=== PATIENT | female | born 1980 | race Caucasian/White ===

== ENCOUNTER 2025-02-06 14:19 | Emergency (ER) | payer BC, SELFPAY ==
--- OUTSIDE RECORDS SUMMARY | 2025-02-06 14:22 | XMS_ITS | Clinical Summary ---
Author Organization [facility] Address [address] [place] [address] Care Team Providers Care Vocational Rehabilitation Administrator Name Role Phone Alfreda Monterroso MD Primary Care Provider [phone] Allergies No known active allergies Medications hyoscyamine 0.125 MG tablet TAKE 1 TABLET BY MOUTH EVERY 4 HOURS NEEDED FOR CRAMPING. 3 03/13/2017 Active buPROPion XL (WELLBUTRIN XL) 150 MG 24 hr tablet 08/20/2021 Active ubrogepant (UBRELVY) 100 MG tablet Take 1 tablet (100 mg total) by mouth. Active cetirizine (ZYRTEC) 5 MG tablet Take 1 tablet (5 mg total) by mouth daily. 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 Left foot pain 12/17/2017 Left lower quadrant pain 12/21/2016 Melena 12/21/2016 Other specified symptoms and signs involving the digestive system and abdomen 12/21/2016 Resolved Problems Problem Noted Date Diagnosed Date Resolved Date Encounter for preventive health examination 11/29/2017 11/28/2019 Encounters Date Type Department Care Team Description 12/19/2024 7:30 AM CDT - 12/19/2024 8:15 AM CDT Surgery [address] [address] Kizzy Mckinney MD HYSTEROSCOPY DILATATION AND CURETTAGE AND RESECTOSCOPE (MYOSURE) 12/19/2024 7:24 AM CD[place] [address] Suzanna Cooley CRNA Ruiz, Eloy A, MD 12/19/2024 6:31 AM CDT - 12/19/2024 11:14 AM CD[place] [address] Kizzy Mckinney MD Discharge Disposition: Home or Self Care (Routine Discharge) 12/19/2024 Travel 12/10/2024 Scan [facility] Information Services [address] [place] [address] Velia Mitchell, CC [facility] (SCAN) 12/08/2024 Travel from Last 3 Months Immunizations Immunization Administration Dates Next Due Influenza (Generic) 12/30/2018 Family History Medical History Relation Comments Hypertension Father Breast Cancer Maternal Aunt Heart Maternal Grandfather Diabetes Paternal Grandfather Heart Paternal Grandfather Relation Status Comments Father Maternal Aunt Alive Maternal Grandfather Paternal Grandfather Social History Tobacco Use Types Packs/Day Years Used Date Smoking Tobacco: Never Smokeless Tobacco: Never Tobacco Cessation:Counseling Given: No Alcohol Use Standard Drinks/Week Comments No 0 (1 standard drink = 0.6 oz pur e alcohol) AUDIT-C Answer Date Recorded Frequency of Alcohol Consumption Never 02/14/2018 Average Number of Drinks Not on file 018 Frequency of Binge Drinking Not on file 01/18 PHQ-2 Answer Date Recorded Patient Health Questionnaire-2 Score 0 03/01/2022 Comments No Sex and Gender Information Value Date Recorded Sex Assigned at Female 02/14/2018 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 Legal Sex Female 8:24 PM CDT Gender Identity Female 02/14/2018 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 Sexual Orientation Straight 02/14/2018 5: 41 PM STAFF RESEARCH SCIENTIST Last Filed Vital Signs Vital Sign Reading Time Taken Comments Blood Pressure 122/74 12/19/2024 8:47 AM CDT Pulse 75 12/19/2024 8:47 AM CDT Temperature 36.4 C (97.6 F) 12/19/2024 8:02 AM CDT Respiratory Rate 16 12/19/2024 8:02 AM CDT Oxygen Saturation 100% 12/19/2024 8:47 AM CDT Inhaled Oxygen Concentration - - Weight 66.7 kg (147 lb) 12/19/2024 6:48 AM CDT Height 160 cm (5' 3) 12/19/2024 6:48 AM CDT Body Mass Index 26.04 12/19/2024 6:48 AM CDT Plan of Treatment Health Maintenance Due Date Last Done Comments Cervical Cancer Screening Pap Smear (Age 30 to 64) Every 3 Years 1979 Colorectal Cancer Screening Colonoscopy (10 Years) 1979 Annual Physical 07/31/1982 Hepatitis C 07/31/1997 DTaP, Tdap and Td Vaccines (1 - Tdap) 07/31/1998 Hepatitis B Vaccines (1 of 3 - 19+ 3-dose series) 07/31/1998 HPV Vaccines (1 - 3-dose SCDM series) 07/31/2006 Cervical Cancer Screening Pap with HPV Testing (Age 30 to 64) Every 5 Years 07/31/2009 Cervical Cancer Screening with HPV 07/31/2009 COVID-19 Vaccine ( season) 2024 05/25/2020 Influenza Adult (#1) 2024 01/09/2020, 12/31/19 19 Mammogram Screening 07/16/2026 07/16/2024, 01/09/2024, 01/02/2024, Additional history exists Hepatitis A Vaccines Aged Out No long er eligible based on patient's age to complete this topic Meningococcal B Vaccine Aged Out No l onger eligible based on patient's age to complete this topic Meningococcal Vaccine Aged Out No mimi ashley eligible based on patient's age to complete this topic Pneumococcal Vaccine: Pediatrics (0 to 5 Years) and At-Risk Patients (6 to 49 Years) Aged Out No longer eligible based on patient's age to complete this topic RSV Immunizations Under 20 Months Aged Out No longer eligible based on patient's age to complete this topic Procedures Procedure Name Priority Date/Time Associated Diagnosis Comments HYSTEROSCOPY BX ENDOMETRIUM&/POLYPC W/WO D&C 12/19/2024 7:24 AM CDT N93.9 Abnormal uterine and vaginal bleeding, unspecified; N84.0 polyp of corpus uteri HC URINE TEST Routine 12/19/2024 6:43 AM CDT PATHOLOGY Routine 12/19/2024 12:00 AM CDT OUTSIDE LAB (SCAN ORDER) Routine 12/10/2024 12:00 AM CDT MG DIAG W SANTIAGO RT DIGI Routine 07/16/2024 8:48 AM CDT Abnormal mammogram from Last 3 Months or Most Recently Relevant to Health Maintenance Results * TEST URINE (12/19/2024 6:43 AM CDT) URINE HCG TEST NEGATIVE NEGATIVE 12/19/2024 7:16 AM CDT [facility] Comment: VERY DILUTE URINE SPECIMENS MAY NOT CONTAIN CONTRACTS ANALYST LEVELS OF HCG. IF IS STILL SUSPECTED, A SERUM HCG TEST IS RECOMMENDED. URINE SPECIMEN FROM URETHRA / Unknown 12/19/2024 6:43 AM CDT us Kizzy Mckinney MD URINE ORDERABLES Final Result Performing Organization Address City/State/[facility] Co de Phone Number [facility] [address] [place] [address], [place] [phone] * Pathology (12/19/2024 12:00 AM CDT) PATHOLOGY [facility] Department of Laboratory Medicine [address] [place] [address] , extension [phone] Pathology Report Surgical Pathology Report Name: MERARI SAUCEDO Specimen #: [id number] Age: 5 1980 (Age: 44) Location: [facility] Sex: F Procedure Date: 12/19/2024 [facility] #: [id number] Date Received: 12/22/2024 Date Reported: 12/23/2024 Provider: KIZZY MCKINNEY MD Source: Endometrium, curettage Clinical History: Abnormal uterine and vaginal bleeding. Polyp of corpus uteri. FINAL DIAGNOSIS: Endometrium, curettage: -Fragments of benign endometrial polyp Gross Description: Received in formalin, labeled with a patient label and as endometrial tissue are multiple pieces of pink kwon tissue intermixed with bloody material, 1.5 x 1 x 0.2 cm in aggregate. The specimen is entirely submitted in cassette 1. Gross examination (when applicable) was performed at [facility], [address] [place] [address]. This case was interpreted and signed out at [facility], [address] [place] [address]. Electronically Signed Out ROSAURA PADILLA MD [facility] TISSUE ENDOMETRIAL STRUCTURE / Unknown 12/19/2024 7:43 AM CDT Kizzy Mckinney MD PATHOLOGY/CYTOLOGY ORDERABLES Final Result Performing Organization Address City/[facility] Co de Phone Number [facility] [address] [place] [address], [place] [phone] * OUTSIDE LAB (12/10/2024 12:00 AM CDT) 12/10/2024 Doc Hospital Scanned SCANNING Final Resul t Performing Organization Address City/[facility] Co de Phone Number [facility] * MG DIAG W SANTIAGO RT DIGI (07/16/2024 8:48 AM CDT) Anatomical Region Laterality Modality Breast Right Mammography, Rad iographic Imaging 07/16/2024 8:55 AM CDT Impressions 07/16/2024 8:58 AM CDT IMPRESSION: Previous asymmetry likely reflected superimposed fibroglandular tissue. No persistent asymmetry on today's examination. No mammographic evidence of malignancy. RECOMMENDATION: Return to year screen in 6 monthsBilateral Findings, impression, and recommendation were discussed with the patient immediately following exam completion. OVERALL IMAGING ASSESSMENT: ACR BI-RADS 2 - BENIGN FINDING(S). Ordered By: RALF SEPULVEDA Interpreted By: Hernando Duval, 07/16/2024 8:55 AM Narrative 07/16/2024 8:58 AM CDT [address] [address] EXAMINATION: MG GRACIE W SANTIAGO RT DIGI INDICATIONS: BI-RADS 3 follow-up TECHNIQUE: Digital full field CC, ML, MLO and CC spot compression diagnostic views of the right breast to include 3-D Tomosynthesis technique. This study was read with the assistance of a computer-aided detection system. HISTORY: Patient presents for six-month diagnostic surveillance of the right breast without breast complaint. Family history of breast cancer. No personal or first degree family history of breast cancer. No prior breast biopsy. COMPARISON: Multiple prior examinations available for comparison dating back to 11/13/2013, the most recent of 01/09/2024, 01/02/2024, 11/07/2023, 12/18/2022, and 11/02/2021. TISSUE DENSITY: The breasts are heterogeneously dense, which may obscure small masses. FINDINGS: Previous ovoid CC view asymmetry does not persist on today's examination. Heterogeneously dense fibroglandular tissue within this region effaces without underlying mass, developing asymmetry, or architectural distortion. No suspicious microcalcification. No axillary adenopathy. Ralf Sepulveda MD MAMMO Final Result from Last 3 Months or Most Recently Relevant to Health Maintenance Insurance Advance Directives * Full Code (Latest Code Status on File) Date Activated Date Inactivated Comments 12/19/2024 8:04 AM 12/19/2024 1:19 PM Care Teams Vocational Rehabilitation Administrator Relationship Specialty Start Date End Date Alfreda Monterroso MD PCP - General FAMILY PRACTICE 02/12/18
--- OUTSIDE RECORDS SUMMARY | 2025-02-06 14:22 | XMS_ITS | Continuity of Care Document ---
Author Organization [facility], [id number] [facility] _[place]RIE Address [address] [facility] [place] [address] Assessment Encounter Date Assessment Date Assessment LastModified by Organization Details LastModified Time 12/26/2024 12/26/2024 TELEHEALTH ENCOU NTER This visit was documented with the use of interactive audio and video telecommunication that permits real-time communication between the patient and provder in-lieu of an in-person visit. All issues as above/below were discussed and addressed but no physical examination was performed unless allowed by visual confirmation on [employer] EMR. started w Wercker, changed to Zebtab d/t her internet at home Medical Decision Making Level: Medical decision making complexity: Low. Total Time: This is a established patient. 5minutes were spent with the patient via audio and video telecommunications reviewing history, ordering tests, and establishing plan on date of the encounter. Provider location: Work office in [place] Patient location: Home Who is on the call: Patient and Provider Platform: [employer] [email or web address] Not available 12/26/2024 09:52:53 Plan of Treatment Reminders Order Date Submit Date Provider Last Modified By Organization Details Last Modified Time Details Appointments ANNUAL- EST 15 2025 12:30P M NISHANT OG Not available Not available Not available Screening Mammogram 2025 09:00A M [id number] MO Not available Not available Not available Lab None recorded. Referral None recorded. Procedures None recorded. Surgeries None recorded. Imaging None recorded. Medication Orders None recorded. Patient TargetsNo targets recorded. Patient InstructionsNo instructions recorded. Reason for Referral None Reported. Results Created Date Observation Date Name Description Value Unit Range Abnormal Flag Note LastModifiedBy Organization Detail LastModifiedTime 11/28/1912/03/2024 SURGI JOSUÉ PATHO LOGY surgical pathology VIEW REPORT ACCES GABRIELLA #: [id number] Patie nt Name: SOLITARIO FLORES, MIKE Pederson Age-S ex-DO B: 44y F [birth year] Proce dure Date: 11/27 05 Acces gabriella Date: 2024 Pt Acct# : Repor t Date: 2024 Locat ion: OFFIC E Physi colt( s): Nereida Mckinney MD P A T H O L O G Y R E P O R T DIAGN OSIS: Endom etriu m, biops y: Benig n endom etria l polyp . Backg round benig n and proli ferat martin-t ype endom etriu m. Donovan Khalil MD elect [facility] elizabeth d 12/03 03:10 PM Gross Descr iptio n: Recei augusto in forma isi label ed Mike Clifford er and per requi sitio n endom etriu m are multi ple piece s of kwon tissu e measu ring in aggre gate 3.0 x 1.5 x 0.3 cm. The speci men is submi tted entir pushpa in casse tte 1A, M/1. (JFA, CA14, amw1) Gross ing servi charla provi ded by [facility] d/b/a [facility] [address] [place], [address] Lisa harvey MD, Labor atory Dire tor. Micro scopi c Descr iptio n: Micro scopi c exami natio n is perfo rmed. Clini josué Histo ry: Abnor mal uteri ne and vagin al bleed ing, unspe cifie d (N93. 9) Speci men List: Endom etria l biops y Unles s speci fied other gupta above , the quali ty of the H and E and any other stain s perfo rmed is satis facto ry, and any inter nal or exter nal posit martin and negat martin contr ols react appro priat pushpa. End of Repor t Techn ical servi charla provi ded by [facility] [employer] [facility], d/b/a Path [facility], [address] [place] [address] Lisa harvey MD, [facility] atorisango! Dire tor. Case revie wed and diagn osis rende red at [facility] [employer] [facility], d/b/a Path [facility], [address], [place] [address] Teena moy M.D., [facility] atorisango! [facility]. CONFI DENTI AL Not Available [facility] ([facility]) [address], [place], [address], 12/03/2024 16:12:08 11/28/19 25 11/27/2024 pregn danisha test, urine HCG negati ve Not Available [id number]_soga [address] [facility] [address], [place], [address], 11/27/2024 10:41:40 12/11/1912/11/2024 CBC WITH DIFF PLUS ABSOL CHENEGA COUNT S WBC 5.6 K/uL 3.8-11 .5 Not Available [facility] ([facility]) [address] [facility] [address], [place], [address], 12/11/2024 05:35:29 12/11/19 25 12/11/2024 CBC WITH DIFF PLUS ABSOL CHENEGA COUNT S red blood cell count (RBC) 4.19 M/mm3 3.60-5 .30 Not Available [facility] ([facility]) [facility] [facility] [address], [place], [address], 12/11/2024 05:35:29 12/11/1912/11/2024 CBC WITH DIFF PLUS ABSOL CHENEGA COUNT S hemoglobin (HGB) 13.0 gm/dL 11.5-1 5.5 Not Available [facility] ([facility]) [address] [place] [address] Dr García, [place], [address], 12/11/2024 05:35:29 12/11/1912/11/2024 CBC WITH DIFF PLUS ABSOL CHENEGA COUNT S hematocrit (HCT) 39.7 % 35.2-4 6.4 Not Available [facility] ([facility]) [address] [place] [address] Dr García, [place], [address], 12/11/2024 05:35:29 12/11/1912/11/2024 CBC WITH DIFF PLUS ABSOL CHENEGA COUNT S MCV 94.7 fL 79.0-9 9.0 Not Available [facility] ([facility]) [address] [place] [address] Dr García, [place], [address], 12/11/2024 05:35:29 12/11/1912/11/2024 CBC WITH DIFF PLUS ABSOL CHENEGA COUNT S MCH 31.0 pg 26.9-3 5.0 Not Available [facility] ([facility]) [address] [place] [address] Dr García, [place], [address], 12/11/2024 05:35:29 12/11/1912/11/2024 CBC WITH DIFF PLUS ABSOL CHENEGA COUNT S MCHC 32.7 g/dL 30.4-3 4.8 Not Available [facility] ([facility]) [address] [place] [address] Dr García, [place], [address], 12/11/2024 05:35:29 12/11/1912/11/2024 CBC WITH DIFF PLUS ABSOL CHENEGA COUNT S RDW 43.8 fL 38.6-5 3.8 Not Available [facility] ([facility]) [address] [place] [address] Dr García, [place], [address], 12/11/2024 05:35:29 12/11/1912/11/2024 CBC WITH DIFF PLUS ABSOL CHENEGA COUNT S platelet count 218 K/cum m 137-39 7 Not Available [facility] ([facility]) [address] [place] [address] Dr García, [place], [address], 12/11/2024 05:35:29 12/11/1912/11/2024 CBC WITH DIFF PLUS ABSOL CHENEGA COUNT S neutrophils automated 61.4 % 41.0-7 7.0 Not Available [facility] ([facility]) [address] [place] [address] Dr García, [place], [address], 12/11/2024 05:35:29 12/11/1912/11/2024 CBC WITH DIFF PLUS ABSOL CHENEGA COUNT S lymphocytes automated 28.7 % 14.0-4 8.0 Not Available [facility] ([facility]) [address] [place] [address] Dr García, [place], [address], 12/11/2024 05:35:29 12/11/1912/11/2024 CBC WITH DIFF PLUS ABSOL CHENEGA COUNT S monocytes automated 7.6 % 4.0-13 .0 Not Available [facility] ([facility]) [address] [place] [address] Dr García, [place], [address], 12/11/2024 05:35:29 12/11/1912/11/2024 CBC WITH DIFF PLUS ABSOL CHENEGA COUNT S eosinophils automated 1.4 % 0.0-8. 0 Not Available [facility] ([facility]) [address] [place] [address] Dr García, [place], [address], 12/11/2024 05:35:29 12/11/1912/11/2024 CBC WITH DIFF PLUS ABSOL CHENEGA COUNT S basophils automated 0.9 % 0.0-1. 5 Not Available [facility] ([facility]) [address] [place] [address] Dr García, [place], [address], 12/11/2024 05:35:29 12/11/1912/11/2024 CBC WITH DIFF PLUS ABSOL CHENEGA COUNT S absolute neutrophil count 3.4 K/uL 2.0-8. 2 Not Available [facility] ([facility]) [address] [place] [address] Dr García, [place], [address], 12/11/2024 05:35:29 12/11/1912/11/2024 CBC WITH DIFF PLUS ABSOL CHENEGA COUNT S absolute lymphocyte count 1.6 K/uL 0.9-3. 6 Not Available [facility] ([facility]) [address] [place] [address] Dr García, [place], [address], 12/11/2024 05:35:29 12/11/1912/11/2024 CBC WITH DIFF PLUS ABSOL CHENEGA COUNT S absolute monocyte count 0.4 K/uL 0.3-1. 0 Not Available [facility] ([facility]) [address] [place] [address] Dr García, [place], [address], 12/11/2024 05:35:29 12/11/1912/11/2024 CBC WITH DIFF PLUS ABSOL CHENEGA COUNT S absolute eosinophil count 0.1 K/uL 0.0-0. 6 Not Available [facility] ([facility]) [address] [place] [address] Dr García, [place], [address], 12/11/2024 05:35:29 12/11/1912/11/2024 CBC WITH DIFF PLUS ABSOL CHENEGA COUNT S absolute basophil count 0.1 K/uL 0.0-0. 1 Not Available [facility] ([facility]) [address] [place] [address] Dr García, [place], [address], 12/11/2024 05:35:29 12/11/1912/11/2024 URINA LYSIS (UA) WITH REFLE X TO MICRO SCOPI C urine type NOT SPECIF IED Not Available [facility] ([facility]) [address] [place] [address] Dr García, [place], [address], 12/11/2024 05:35:29 12/11/1912/11/2024 URINA LYSIS (UA) WITH REFLE X TO MICRO SCOPI C urine color Yellow yellow Not Available Path [facility] ([facility]) [address] [place] [address] Dr García, [place], [address], 12/11/2024 05:35:29 12/11/1912/11/2024 URINA LYSIS (UA) WITH REFLE X TO MICRO SCOPI C urine appearance Clear clear Not Available [facility] ([facility]) [address] [place] [address] Dr García, [place], [address], 12/11/2024 05:35:29 12/11/19 25 12/11/2024 URINA LYSIS (UA) WITH REFLE X TO MICRO SCOPI C urine specific gravity <1.005 1.005- 1.030 low Not Available [facility] ([facility]) [address] [place] [address] Dr García, [place], [address], 12/11/2024 05:35:29 12/11/1912/11/2024 URINA LYSIS (UA) WITH REFLE X TO MICRO SCOPI C urine pH 6.5 5.0-9. 0 Not Available [facility] ([facility]) [address] [place] [address] Dr García, [place], [address], 12/11/2024 05:35:29 12/11/1912/11/2024 URINA LYSIS (UA) WITH REFLE X TO MICRO SCOPI C urine leukocytes esterase Negati ve negati ve Not Available [facility] ([facility]) [address] [place] [address] Dr García, [place], [address], 12/11/2024 05:35:29 12/11/19 25 12/11/2024 URINA LYSIS (UA) WITH REFLE X TO MICRO SCOPI C urine nitrites Negati ve negati ve Not Available [facility] ([facility]) [address] [place] [address] Dr García, [place], [address], 12/11/2024 05:35:29 12/11/1912/11/2024 URINA LYSIS (UA) WITH REFLE X TO MICRO SCOPI C urine protein Negati ve negati ve Not Available [facility] ([facility]) [address] [place] [address] Dr García, [place], [address], 12/11/2024 05:35:29 12/11/19 25 12/11/2024 URINA LYSIS (UA) WITH REFLE X TO MICRO SCOPI C urine glucose Negati ve negati ve Not Available [facility] ([facility]) [address] [place] [address] Dr García, [place], [address], 12/11/2024 05:35:29 12/11/1912/11/2024 URINA LYSIS (UA) WITH REFLE X TO MICRO SCOPI C urine ketones Negati ve negati ve Not Available [facility] ([facility]) [address] [place] [address] Dr García, [place], [address], 12/11/2024 05:35:29 12/11/19 25 12/11/2024 URINA LYSIS (UA) WITH REFLE X TO MICRO SCOPI C urine urobilinogen 0.2 E.U./ dL 0.2-1. 0 Not Available [facility] ([facility]) [address] [place] [address] Dr García, [place], [address], 12/11/2024 05:35:29 12/11/19 25 12/11/2024 URINA LYSIS (UA) WITH REFLE X TO MICRO SCOPI C urine bilirubin Negati ve negati ve Not Available [facility] ([facility]ologists [facility]) [address] [place] [address] Dr García, [place], [address], 12/11/2024 05:35:29 12/11/19 25 12/11/2024 URINA LYSIS (UA) WITH REFLE X TO MICRO SCOPI C urine blood Negati ve negati ve Not Available [facility] ([facility]ologists [facility]) [address] [place] [address] Dr García, [place], [address], 12/11/2024 05:35:29 12/11/19 25 12/11/2024 CULTU RE, URINE specimen source Urine - NotSp Not Available [facility]) [address] [place] [address] Dr García, [place], [address], 12/12/2024 01:04:40 12/11/19 25 12/11/2024 CULTU RE, URINE culture, urine See Below Final Repor t : No Signi fican t Growt h Not Available [facility] ([facility]) [address] [place] [address] Dr García, [place], [address], 12/12/2024 01:04:40 01/08/2001/07/2025 MAMMO , scree ella, tomos ynthe sis, bilat eral No observ ation record ed. KARLIE [id number] t Mammo_southda [facility] [address] [facility] [address], [place], [address], 01/08/2025 10:38:19 01/08/2001/07/2025 lay lette r No observ ation record ed. KARLIE [id number]_[id number] t Mammo_southda le [place] [address] [facility] [address], [place], [address], 01/08/2025 10:38:19 Result Notes None recorded. Problems Name Problem SNOMED Code Status Onset Date Resolution Date Notes Provider Name and Address Organization Details Recorded Time Irritable bowel syndrome 40872655 Active RUBY MCKINNEY MD [address] [facility] [address], [place], [place], [address], [facility] [place] [facility] 5 10:47:51 Anxiety state 011471478 Active RUBY MCKINNEY MD [address] [facility] [address], [place], [place], [address], [facility] [place] [facility] 5 10:28:55 Abnormal uterine bleeding 29131322622294 Active 2024 8mm ems w fluid, polyp on EMB 5 RUBY MCKINNEY MD [address] [facility] [address], [place], [place], [address], [facility] [place] [facility] 5 13:07:56 Dysuria 05517885 Active 2024 NISHANT OG [address] [facility] [address], [place], [place], [address], [facility] [place] [facility] 5 15:10:47 Problem Notes None recorded. Procedures Surgical History Date Name Laterality Status Provider Name and Address Organization Details Recorded Time 01/08/20 25 Date of Last Mammogram completed RUBY MCKINNEY MD [address] [facility] [address], [place], [address], [facility] [place] [facility] 01/08/2025 08:46:04 12/20/19 25 HYSTEROSCOPY, SURGICAL, WITH BIOPSY OF ENDOMETRIUM AND/OR POLYPECTOMY (SURG) completed Debbie Desai [facility] 01/05/2025 16:29:42 11/28/19 25 Endometrial Biopsy Procedure Note ([facility]) completed RUBY MCKINNEY MD [address] [facility] [address], [place], [address], [facility] [place] [facility] 11/27/2024 11:02:33 11/28/19 25 Tray completed RUBY MCKINNEY MD [address] [facility] [address], [place], [address], [facility] [place] for [facility] 11/27/2024 11:03:57 11/28/19 25 endometrial biopsy completed RUBY MCKINNEY MD [address] [facility] [address], [place], [address], [facility] [place] for [facility] 12/09/2024 13:06:27 03/19/19 24 Date of Last Colonoscopy completed Flash Griffith [facility] for [facility] 11/05/2024 14:47:31 10/21/19 23 Date of Last Pap Smear completed Flash Griffith [facility] 11/05/2024 14:47:04 03/19/19 01 Tonsillectomy completed RUBY MCKINNEY MD [address] [facility] [address], [place], [address], [facility] [place] [facility] 12/09/2024 13:06:05 other specified functional endoscopic sinus surgery - therapeutic endoscopy of nose or sinus completed RUBY MCKINNEY MD [address] [facility] [address], [place], [address], [facility] [place] for [facility] 12/09/2024 13:08:41 Colonoscopy completed Erin Collins(TERM) [facility] 12/08/2024 10:10:12 Imaging Results None recorded. Procedure Notes None recorded. Medical Equipment None Reported. Allergies No known drug allergies Medications Name Sig Start Date Stop Date Status Note LastModified by Organization Details LastModified Time amoxicillin 500 mg capsule TAKE 2 CAPSULES BY MOUTH TWICE DAILY 11/05 completed Not Available Not Available Not Available fluconazole 150 mg tablet TAKE 1 TABLET BY MOUTH 1 TIME A DAY. MAY TAKE THE 2 ND PILL BY MOUTH 2 DAYS LATER IF SYMPTOMS ARE STILL PRESENT 11/05 completed Not Available Not Available Not Available sulfamethox azole 800 mg-trimetho prim 160 mg tablet TAKE ONE TABLET BY MOUTH TWICE DAILY ROUGHLY EVERY 12 HOURS IN THE MORNING AND EVENING FOR 7 DAYS 11/05 completed Not Available Not Available Not Available bupropion HCl XL 300 mg 24 hr tablet, extended release Take 1 tablet by mouth once daily 2024 active Not Available Not Available Not Avai lable ibuprofen active Not Available Not Jessica ilable Not Available Vitals None Recorded Social History Question Answer Notes LastModified by [employer] Details LastModified Time Tobacco Smoking Status Never Smoker Not Available [facility] 07/17/2024 15:53:33 Do You Have An Advance Directive? No Information not available 12/08/2024 If You Are , What Was Your Level Of Alcohol Consumption Prior To ? None Information not available 12/08/2024 What Is Your Level Of Caffeine Consumption? Moderate Information not available 12/08/2024 What Type Of Diet Are You Following? REGULAR Information not available 12/08/2024 How Many Times Per Week Do You Exercise? Less Than 1 Time Per Week Information not available 11/27/2024 What Is Your Relationship Status? [email or web address] Information not available 11/27/2024 Sex: Female Functional Status Question Answer Note LastModified by Organizat ion Details LastModified Time Do you use any illicit or recreational drugs? No [email or web address] Information not available 07/17/2024 What is your level of alcohol consumption? Occasional Information not available 11/27/2024 Are you currently employed? Yes Information not available 12/08/2024 Mental Status None recorded. Family History Relationship Description Onset Age of this Age Resolved Age Notes LastModified by Organization Details LastModified Time Father Mixed hypercholest erolemia and hypertriglyc eridemia Elevat ed Choles terol/ Trigly ceride s API-27 Not available 12/26/2024 09:44:24 Sister Mixed hypercholest erolemia and hypertriglyc eridemia Elevat ed Choles terol/ Trigly ceride s API-27 Not available 12/26/2024 09:44:24 Maternal Grandmother Malignant neoplastic disease Cancer mgm-no n hodgki nds lympho ma Not available 07/17/2024 15:07:35 Father Hypertensive disorder High Blood Pressu re Not available 07/17/2024 15:07:35 Sister Hypertensive disorder High Blood Pressu re Not available 07/17/2024 15:07:35 Paternal Grandfather Diabetes mellitus Diabet es pgf Not available 07/17/2024 15:07:35 Medical History Condition Response Psych- Anxiety Disorder N GI- Irritable Bowel Syndrome Y Cancer- Genetic screening Gynecological History Statement/Question Response Date of Last Mammogram 01/07/2025 Flow Moderate History of Fibroids N Date of LMP 10/21/2024 Current Control Method: Vasectomy - Partner Cologuard Testing N History of Recurrent Ovarian Cysts Y Age at first intercourse 16 Date of Last Colonoscopy 03/19/2023 Date of Last HPV Test 10/20/2022 Date of Last Cholesterol Screening 11/11 History of PCOS N History of Infertility N History of Cervical Dysplasia N History of Vulvar Dysplasia N Duration of Flow (days) 4 Current Control Method Partner Vas ectomy Age at Menarche 15 History of Endometriosis N Frequency of Cycle (Q days) 27 Sexually Active? Y History of Abnormal PAP N History of Dysmenorrhea N Date of Last Pap Smear 10/20/2022 Sexual Problems? N History of Sexually Transmitted Infectio n N Obstetrics History GPAL:G 1 P 1 0 0 1 Type Value Multiple Births 0 Full Term 1 Induced 0 Spontaneous 0 Premature 0 Living 1 Ectopics 0 Total 1 Immunizations Vaccine Type Date Status Note Provider Nam e and Address Organization Details Recorded Time Influenza, split virus, quadrivalent, preservative 9 completed Not Available [facility] 12/26/2024 09:45:08 Influenza, split virus, quadrivalent, PF 0 completed Not Available [facility] 12/26/2024 09:45:08 COVID-19 vaccine, vector-nr, rS-Ad26, PF, 0.5 mL 1 completed Not Available [facility] 12/26/2024 09:45:08 Past Encounters Encounter ID Performer Location Encounter Start Date Encounter Closed Date Diagnosis/Indication Diagnosis SNOMED-CT Code Diagnosis ICD10 Code Diagnosis IMO Codes Diagnosis Note [id number] RUBY MCKINNEY MD [id number] [facility] [id number] [place] [facility] [address] [place] [address] 11/27/2024 10:38:22 11/27/2024 11:04:03 Abnormal uterine bleeding [id number] 9100 N93.9 [id number] RUBY MCKINNEY MD [id number] [place] [address] 12/10/2024 10:21:43 12/10/2024 10:34:43 Abnormal uterine bleeding [id number] 9100 N93.9 [id number] Anxiety state [id number] F41.1 [id number] RUBY MCKINNEY MD [id number] [facility] [address] [facility] [place] [place] [address] 12/26/2024 09:41:17 12/26/2024 09:55:44 Postoperative visit 588655698 Z48.89 [id number] Abnormal u terine bleeding [id number] 9100 N93.9 [id number] Health Concerns Section Related Observation LastModified by Organization Detai ls LastModified Time None Recorded Concern Status LastModified by Organization Details LastModified Time None Recorded Payers Encounter Date Sequence Insurance Name Policy Number Policy Antunez Covered Member ID Antunez Member ID Guarantor Name 12/26/2024 1 [facility] (PP[facility]) [id number] Merari Montano [id number] Merari Montano Notes Date Note Type Note Provider Name and Address Organization Details Recorded Time 12/26/2024 text/html feels great! polyps benign, call if AUB returns.had benign myosure polypectomy on 12-19-24 RUBY MCKINNEY MD [address] [facility] [address], [place], [address], [facility] [place] [place] [facility] 12/26/2024 09:53:13 OBGyn Episode No OBEpisode recorded.
--- OUTSIDE RECORDS SUMMARY | 2025-02-06 14:22 | XMS_ITS | Encounter Summary ---
Author Organization [email or web address] [facility] Address 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
--- OUTSIDE RECORDS SUMMARY | 2025-02-06 14:22 | XMS_ITS | Clinical Summary ---
Author Organization [facility] Address [address] [place] [address] Care Team Providers Care Purchasing Manager/Sales Name Role Phone Alfreda Monterroso MD Primary Care Provider [phone] Allergies No known active allergies Medications buPROPion XL (WELLBUTRIN XL) 300 mg 24 hr tablet 2 Active ubrogepant (Ubrelvy) 100 mg tablet Take 1 tablet (100 mg total) by mouth once as needed for migraine May repeat dose once in 2 hours if no relief. Do not exceed 2 doses in 24 hours. Active dicyclomine (BENTYL) 10 mg capsuleIndicatio ns:Abdominal pain Take 1 capsule (10 mg total) by mouth every 6 (six) hours as needed (Every 4-6 hrs PRN) 30 capsule 1 4 Active omeprazole (PriLOSEC) 20 mg capsuleIndicatio ns:Gastroesophag eal reflux disease without esophagitis TAKE 1 CAPSULE(20 MG) BY MOUTH DAILY BEFORE BREAKFAST 30 capsule 3 4 Active Active Problems Problem Noted Date Diagnosed Date Irritable bowel syndrome with diarrhea 4 Other irritable bowel syndrome 04/02/2023 Assessment & Plan (04/02/2023 3:28 PM PLANT CUSTODIAN): Continue PPI Recommended align probiotics Abdominal pain 05/19/2022 Assessment & Plan (05/19/2022 10:45 AM PLANT CUSTODIAN): Epigastric/left lower quadrant abdominal pain, cramping, dull, for years, getting progressively worse over the past few months. Worse with meals, improved with Gas-X and bowel movements. Associated with nausea but no vomiting. Differential includes peptic ulcer disease (patient taking Excedrin for migraines) versus gallstones versus IBS versus IBD. -avoid NSAIDS -we will order labs and ultrasound for further evaluation -schedule EGD -The risks (risks of bleeding, infection, perforation requiring surgery, missed polyps/cancer, dental injury, aspiration pneumonia, anesthesia complications such as drug reaction and cardiopulmonary complications including rare chance of ), benefits, and alternatives of the planned procedure were explained to the patient who understands and consents to having procedure done. Diarrhea 05/19/2022 Assessment & Plan (05/19/2022 10:47 AM PLANT CUSTODIAN): Patient has 4-6 loose to watery bowel movements per day. Patient mentioned she is seen Dr. Weir in the past and has had a colonoscopy and capsule endoscopy, workup revealed questionable Crohn's. Patient states she is been on medication briefly but then stopped. -we will order labs and stool studies for further evaluation -obtain prior records from Dr. Weir -schedule colonoscopy -The risks (risks of bleeding, infection, perforation requiring surgery, missed polyps/cancer, dental injury, aspiration pneumonia, anesthesia complications such as drug reaction and cardiopulmonary complications including rare chance of ), benefits, and alternatives of the planned procedure were explained to the patient who understands and consents to having procedure done. 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 COLONOSCOPY 15-20 y ago normal WISDOM TOOTH EXTRACTION Medical History Medical History Date Comments Anxiety Constipation Urinary tract infection Family History Relation Name Status Comments Father Alive Mother Alive Social History Tobacco Use Types Packs/Day Years Used Date Smoking Tobacco: Never Tobacco Cessation:Counseling Given: Not Answered AUDIT-C Answer Date Recorded Q1: How often do you have a drink containing alcohol? Never 03/20/2023 Q2: How many drinks containi ng alcohol do you have on a typical day when you are drinking? Patient does not drink Q3: How often do you have si x or more drinks on one occasion? Never 03/20/2023 Personal Safety Answer Date Recorded Have you ever been in or are you currently in a harmful physical or emotional relationship or is someone making you feel afraid or unsafe? Denies 03/20/2023 Comments Unknown Sex and Gender Information Value Date Recorded Sex Assigned at Not on file Legal Sex Female 12:18 AM PLANT CUSTODIAN Gender Identity Not on file Sexual Orientation Not on file Last Filed Vital Signs Vital Sign Reading Time Taken Comments Blood Pressure 112/75 04/02/2023 3:03 PM PLANT CUSTODIAN Pulse 81 04/02/2023 3:03 PM PLANT CUSTODIAN Temperature 36.7 C (98 F) 03/20/2023 11:58 AM PLANT CUSTODIAN Respiratory Rate 15 03/20/2023 12:33 PM PLANT CUSTODIAN Oxygen Saturation 100% 03/20/2023 12:33 PM PLANT CUSTODIAN Inhaled Oxygen Concentration - - Weight 67.1 kg (148 lb) 04/02/2023 3:03 PM PLANT CUSTODIAN Height 157.5 cm (5' 2) 04/02/2023 3:03 PM PLANT CUSTODIAN Body Mass Index 27.07 04/02/2023 3:03 PM PLANT CUSTODIAN Plan of Treatment Health Maintenance Due Date Last Done Comments Breast Cancer Screening-Mammogram 1980 Cervical Cancer Screening 1980 Depression Screening 1980 Hepatitis C Screening 1980 DTaP/Tdap/Td Vaccine (1 - Tdap) 07/31/1990 Varicella Vaccines (1 of 2 - 13+ 2-dose series) 07/31/1992 Hepatitis B Screening 07/31/1997 Regular Well Visit/Exam 18-64 07/31/1997 HPV Vaccines (1 - 3-dose SCD M series) 07/31/2006 Covid-19 Vaccine (2024-2 6 season) 2024 05/25/2020 Influenza Vaccine (#1) 2024 0, 12/30/2018, 12/30/2018 Colon Cancer Screening-Colonoscopy 03/20/2033 03/20/2023 Pneumococcal vaccine <65 Aged Out No longer eligible based on patient's age to complete this topic Procedures Procedure Name Priority Date/Time Associated Diagnosis Comments COLONOSCOPY 03/20/2023 11:10 AM PLANT CUSTODIAN from Last 3 Months or Most Recently Relevant to Health Maintenance Results * COLONOSCOPY (03/20/2023 11:10 AM PLANT CUSTODIAN) Anatomical Region Laterality Modality Other Narrative Procedure Note Asim Lewis MD - 03/20/2023 11:10 AM CST [facility] ENDOSCOPY Patient Name: Merari Montano Procedure Date: 03/20/2023 11:10 AM Date of : 1980 Admit Type: Outpatient Age: 42 Gender: Female Attending MD: Asim Lewis M.D. Room: [facility] ENDOSCOPY ROOM 06 Note Status: Finalized Procedure: Colonoscopy Indications: Abdominal pain, Chronic diarrhea Referring MD: Alfreda Monterroso M.D. Providers: Asim Lewis M.D. Medicines: Monitored Anesthesia Care Complications: No immediate complications. Estimated Blood Loss: Estimated blood loss: none. Procedure: Pre-Anesthesia Assessment: - Prior to the procedure, a History and Physicalwas performed, and patient medications and allergieswere reviewed. The risks and benefits of the procedureand the sedation options and risks were discussed withthe patient. All questions were answered and informed consent was obtained. Patient identification and proposed procedure were verified. After reviewingthe risks and benefits, the patient was deemed in satisfactory condition to undergo the procedure.The anesthesia plan was to use monitored anesthesiacare (MAC). Immediately prior to administration of medications, the patient was re-assessed foradequacy to receive sedatives. The heart rate, respiratory rate, oxygen saturations, blood pressure, adequacyof pulmonary ventilation, and response to care were monitored throughout the procedure. The physical status of the patient was re-assessed after the procedure. The benefits, risks and alternatives of theprocedure and sedation were discussed and informed consentwas obtained. All questions were answered. Please referto the signed informed consent document in the medical record. The scope was passed under direct vision.The [id number] colonoscope was introduced through theanus and advanced to the terminal ileum. The colonoscopy was performed without difficulty. The patient tolerated the procedure well. The quality of thebowel preparation was fair. Scope withdrawal time was 8 minutes. Prep was administered in a split dose. Findings: The perianal and digital rectal examinations were normal. The terminal ileum appeared normal. Non-bleeding internal hemorrhoids were found during retroflexion. The hemorrhoids were small. The exam was otherwise without abnormality. Biopsies for histology were taken with a cold forceps from the right colon and left colon for evaluation of microscopic colitis. Impression: - Preparation of the colon was fair. - The examined portion of the ileum was normal. - Non-bleeding internal hemorrhoids. - The examination was otherwise normal. - Biopsies were taken with a cold forceps from the right colon and left colon for evaluation of microscopic colitis. Recommendation: - Patient has a contact number available for emergencies. The signs and symptoms of potential delayed complications were discussed with thepatient. Return to normal activities tomorrow. Written discharge instructions were provided to thepatient. - High fiber diet. - Continue present medications. - Await pathology results. - Repeat colonoscopy in 10 years. - Return to GI clinic as previously scheduled. Asim Lewis M.D. Asim Lewis M.D. 03/20/2023 12:00:53 PM . Number of Addenda: 0 Note Initiated On: 03/20/2023 11:10 AM Recognized by the [employer] for promoting quality in endoscopy Asim Lewis MD ENDOSCOPY PROCEDURES Final Resul t from Last 3 Months or Most Recently Relevant to Health Maintenance Insurance [employer] Care Teams Purchasing Manager/Sales Relationship Specialty Start Date End Date Alfreda Monterroso MD [address] [facility] [address] [place] [address] PCP - General Family Medicine 05/03/22
--- OUTSIDE RECORDS SUMMARY | 2025-02-06 14:22 | XMS_ITS | Clinical Summary ---
Author Organization [facility] Address [address] [facility] Attn: Epic Prelude ADT EMILY SALCIDO [address] Care Team Providers Care Business Development Coordinator Name Role Phone Unavailable Primary Care Provider Unavailabl e Social History Tobacco Use Types Packs/Day Years Used Date Smoking Tobacco: Never Assessed Comments Unknown Sex and Gender Information Value Date Recorded Sex Assigned at Not on file Legal Sex Female 5:09 AM COAL INSPECTOR Gender Identity Not on file Sexual Orientation Not on file Plan of Treatment Health Maintenance Due Date Last Done Comments DTAP/TDAP/TD VACCINES (1 - Tdap) 07/31/1998 HEPATITIS B VACCINES (1 of 3 - 19+ 3-dose series) 07/17 HPV/Cotest (21-29) 07/31/2000 HPV VACCINES (1 - 3-dose SCDM series) 07/31/2006 CERVICAL CANCER SCREENING 07/31/2009 HPV/Cotest (30-65) 07/31/2009 PAP SMEAR 07/31/2009 BREAST CANCER SCREENING 2019 COLORECTAL SCREENING 07/31/2024 Colorectal Cancer Screening 07/31/2024 FIT-DNA Q 3 years 07/31/2024 FIT/FOBT Q 1 year 07/31/2024 Flex Sig/CT Colonography Q 5 years 07/31/2024 INFLUENZA VACCINE (#1) 2024
--- OUTSIDE RECORDS SUMMARY | 2025-02-06 14:22 | XMS_ITS | Continuity of Care Document ---
Author Organization [facility], [id number] [facility] [address] Address [address] [facility] [address] [place] [address] Assessment No assessment recorded. Plan of Treatment Reminders Order Date Submit Date Provider Last Modified By Organization Details Last Modified Time Details Appointments ANNUAL- EST 15 2025 12:30P M NISHANT HOWARDNP Not available Not available Not available Screening Mammogram 2025 09:00A M [email or web address] [place] Not available Not available Not available Lab None recorded. Referral None recorded. Procedures None recorded. Surgeries None recorded. Imaging US, transvagi nal 2024 025 [email or web address] Not available 11/06/2024 11:18:32 US, pelvis 2024 025 [email or web address] Not available 11/06/2024 11:18:32 Medication Orders None recorded. Patient TargetsNo targets recorded. Patient InstructionsNo instructions recorded. Reason for Referral None Reported. Results Created Date Observation Date Name Description Value Unit Range Abnormal Flag Note LastModifiedBy Organization Detail LastModifiedTime 11/06/1911/05/2024 urina lysis , dipst ick Unknown Analyte Negati ve Not Available [id number], [place], [address], 11/05/2024 15:10:50 11/06/19 25 11/05/2024 urina lysis , dipst ick Unknown Analyte Negati ve Not Available [id number] [place], [place] [address] , [place], [address], 11/05/2024 15:10:50 11/06/19 25 11/05/2024 urina lysis , dipst ick Unknown Analyte Trace Not Available [address] [place], [place] [address] [place], [address], 11/05/2024 15:10:50 11/06/19 25 11/05/2024 urina lysis , dipst ick Unknown Analyte 1.015 Not Available [address] , [place], [address], 11/05/2024 15:10:50 11/06/19 25 11/05/2024 urina lysis , dipst ick Unknown Analyte Negati ve Not Available [address] , [place], [address], 11/05/2024 15:10:50 11/06/19 25 11/05/2024 urina lysis , dipst ick Unknown Analyte 6.0 Not Available [address] [place], [address], 11/05/2024 15:10:50 11/06/19 25 11/05/2024 urina lysis , dipst ick Unknown Analyte Trace Not Available [address] [place], [place] [address] [place], [address], 11/05/2024 15:10:50 11/06/19 25 11/05/2024 urina lysis , dipst ick Unknown Analyte 0.2 Not Available [address] [place], [address], 11/05/2024 15:10:50 11/06/19 25 11/05/2024 urina lysis , dipst ick Unknown Analyte negati ve Not Available [id number] , [place], [address], 11/05/2024 15:10:50 11/06/19 25 11/05/2024 urina lysis , dipst ick Unknown Analyte Negati ve Not Available [id number] , [place], [address], 11/05/2024 15:10:50 11/07/19 25 11/06/2024 ultra sound image s RAD bgelly [employer] [id number] 11/27/2024 10:51:19 11/07/19 25 11/05/2024 US, trans vagin al No observ ation record ed. bgelly Not Available 2024 10:51:19 01/08/20 25 01/07/2025 MAMMO , scree ella, tomos ynthe sis, bilat eral No observ ation record ed. KARLIE [id number] t Mammo_southda [facility] [address], [place], [address], 01/08/2025 10:38:19 01/08/20 25 01/07/2025 lay lette r No observ ation record ed. KARLIE [id number] t Mammo_southda [facility] [address], [place], [address], 01/08/2025 10:38:19 Result Notes None recorded. Problems Name Problem SNOMED Code Status Onset Date Resolution Date Notes Provider Name and Address Organization Details Recorded Time Irritable bowel syndrome 50931346 Active RUBY MCKINNEY MD [address], [place], [address] , [facility] [place] [facility] 10:47:51 Anxiety state 834539268 Active RUBY MCKINNEY MD [address] [facility] [address], [place], [place], [address], [facility] [place] [facility] 5 10:28:55 Abnormal uterine bleeding 69864883970723 Active 2024 8mm ems w fluid, polyp on EMB 5 RUBY MCKINNEY MD [address] [facility] [address], [place], [place], [address], [facility] [place] [facility] 5 13:07:56 Dysuria 83090243 Active 2024 NISHANT OG [address] [facility] [address], [place], [place], [address], [facility] [place] [facility] 5 15:10:47 Problem Notes None recorded. Procedures Surgical History Date Name Laterality Status Provider Name and Address Organization Details Recorded Time 01/08/20 25 Date of Last Mammogram completed RUBY MCKINNEY MD [address] [facility] [address], [place], [address], [facility] 01/08/2025 08:46:04 12/20/19 25 HYSTEROSCOPY, SURGICAL, WITH BIOPSY OF ENDOMETRIUM AND/OR POLYPECTOMY (SURG) completed Debbie Desai [facility] 01/05/2025 16:29:42 11/28/19 25 Endometrial Biopsy Procedure Note ([facility]) completed RUBY MCKINNEY MD [address] [facility] [address], [place], [address], [facility] 11/27/2024 11:02:33 11/28/19 25 Tray completed RUBY MCKINNEY MD [address] [facility] [address], [place], [address], [facility] 11/27/2024 11:03:57 11/28/19 25 endometrial biopsy completed RUBY MCKINNEY MD [address] [facility] [address], [place], [address], [facility] 12/09/2024 13:06:27 03/19/19 24 Date of Last Colonoscopy completed Flash Griffith [facility] 11/05/2024 14:47:31 10/21/19 23 Date of Last Pap Smear completed Flash Griffith [facility] 11/05/2024 14:47:04 03/19/19 01 Tonsillectomy completed RUBY MCKINNEY MD [address] [facility] [address], [place], [address], [facility] 12/09/2024 13:06:05 other specified functional endoscopic sinus surgery - therapeutic endoscopy of nose or sinus completed RUBY MCKINNEY MD [address] [facility] [address], [place], [address], [facility] for [facility] 12/09/2024 13:08:41 Colonoscopy completed Erin Collins(TERM) [facility] 12/08/2024 10:10:12 Imaging Results None recorded. Procedure [...] Social History Question Answer Notes LastModified by Organizat ion Details LastModified Time Tobacco Smoking Status Never Smoker Not Available [employer] 07/17/2024 15:53:33 Do You Have An Advance [...] available 11/27/2024 What Is Your Relationship Status? [email or web address] Information not available 11/27/2024 Sex: Female Functional [...] virus, quadrivalent, preservative 9 completed Not Available [facility] 12/26/2024 09:45:08 Influenza, split virus, quadrivalent, PF 0 completed Not Available [facility] 12/26/2024 09:45:08 COVID-19 vaccine, vector-nr, rS-Ad26, PF, 0.5 mL 1 completed Not Available [facility] 12/26/2024 09:45:08 Past Encounters Encounter ID Performer Location Encounter Start Date Encounter Closed Date Diagnosis/Indication Diagnosis SNOMED-CT Code Diagnosis ICD10 Code Diagnosis IMO Codes Diagnosis Note [id number] MAG[address]IE ALVAREZ [address], MD [id number] [facility] [address] [place] [address] 11/05/2024 14:31:19 11/05/2024 15:14:23 Dysuria 93669175 R30.0 87250 11/05/24-de clines urine cx-will call if sx worsen Abnormal u terine bleeding 4415466273 9100 N93.9 [id number] 11/05/24-snider ve blood work done-maximus harvey labs done with PCP next week-will take TSH order to their office in [place]- schedule US in our [place] office Mental hea lt screening 242170590 Z13.30 [id number] 11/05/24-ga d7 score 4-phq9 score 0 [id number] RUBY MCKINNEY MD [id number] [facility] [address] [place] [address] 11/06/2024 10:50:48 11/06/2024 11:18:31 Abnormal uterine bleeding 4822208212 9100 N93.9 [id number] Health Concerns Section Related Observation LastModified by Organization Detai ls LastModified Time None Recorded Concern Status LastModified by Organization Details LastModified Time None Recorded Payers Encounter Date Sequence Insurance Name Policy Number Policy Antunez Covered Member ID Antunez Member ID Guarantor Name 11/06/2024 1 [facility] (PPO[facility] [id number] Merari Montano [id number] Merari Montano OBGyn Episode No OBEpisode recorded.
--- OUTSIDE RECORDS SUMMARY | 2025-02-06 14:23 | XMS_ITS | Data Portability ---
Author Organization [facility], [id number] [facility] Address [address] [place] [address] Assessment Encounter Date Assessment Date Assessment LastModified [...] performed unless allowed by visual confirmation on [employer] EMR. started w [employer], changed to [employer] d/t her internet at home Medical Decision Making Level: Medical decision making complexity: Low. Total Time: This is a established patient. 5minutes were spent with the patient via audio and video telecommunications reviewing history, ordering tests, and establishing plan on date of the encounter. Provider location: Work office in [place] Patient location: Home Who is on the call: Patient and Provider Platform: ESTmob [email or web address] Not available 12/26/2024 09:52:53 Plan of Treatment Reminders Order Date Submit Date Provider Last Modified By Organization Details Last Modified Time Details Appointments ANNUAL- EST 15 2025 12:30P M NISHANT OG Not available Not available Not available Screening Mammogram 20 2025 09:00A M [id number] [place] Not available Not available Not available Lab test, urine 2024 025 bgelly [id number] [facility] [address], [address], [place], [address], 11/27/2024 11:31:38 surgical pathology study 2024 025 KARLIE [facility] ([facility]), [address], [place], [address], 12/03/2024 16:12:09 urinalysi s, dipstick 2024 025 [email or web address] [id number], [address] , [place], [address], 11/05/2024 15:13:50 TSH, serum, reflex free T4 2024 025 lydia [facility] ([facility]), [address], [address], [place], [address], 11/13/2024 13:19:19 Referral None recorded. Procedures None recorded. Surgeries None recorded. Imaging US, transvagi nal 2024 025 [email or web address] Not available 11/06/2024 11:18:32 US, pelvis 2024 025 [email or web address] Not available 11/06/2024 11:18:32 Medication Orders None recorded. Patient TargetsNo targets recorded. Patient Instructions Encounter Date Encounter Id Patient Instructions Last Modified By Organization Details Last Modified Time 12/10/2024 [id number] The indication for surgery was discussed with the patient. Reviewed alternatives to surgery including the following: exp mgmt. The patient was counseled regarding the risks and benefits of the procedure. Reviewed relevant risks including bleeding, infection and injury (including injury to bowel, bladder and vasculature). Discussed expectations for duration of the procedure, length of hospitalization, ad length of recovery. All questions were answered in full. [email or web address] Not available 12/10/2024 10:30:59 Reason for Referral None Reported. Results Created Date Observation Date Name Description Value Unit Range Abnormal Flag Note LastModifiedBy Organization Detail LastModifiedTime 11/06/19 25 11/05/2024 urina lysis , dipst ick Unknown Analyte Negati ve Not Available [address] , [place], [address], 11/05/2024 15:10:50 11/06/19 25 11/05/2024 urina lysis , dipst ick Unknown Analyte Negati ve Not Available [address] , [place], [address], 11/05/2024 15:10:50 11/06/19 25 11/05/2024 urina lysis , dipst ick Unknown Analyte Trace Not Available [address] [place], [address], 11/05/2024 15:10:50 11/06/19 25 11/05/2024 urina lysis , dipst ick Unknown Analyte 1.015 Not Available [address] , [place], [address], 11/05/2024 15:10:50 11/06/19 25 11/05/2024 urina lysis , dipst ick Unknown Analyte Negati ve Not Available [address] , [place], [address], 11/05/2024 15:10:50 11/06/19 25 11/05/2024 urina lysis , dipst ick Unknown Analyte 6.0 Not Available [address] , [place], [address], 11/05/2024 15:10:50 11/06/19 25 11/05/2024 urina lysis , dipst ick Unknown Analyte Trace Not Available [address], [place], [address], 11/05/2024 15:10:50 11/06/19 25 11/05/2024 urina lysis , dipst ick Unknown Analyte 0.2 Not Available [address] [place] [address], [address], 11/05/2024 15:10:50 11/06/19 25 11/05/2024 urina lysis , dipst ick Unknown Analyte negati ve Not Available [id number] [place] [address], [place], [address], 11/05/2024 15:10:50 11/06/19 25 11/05/2024 urina lysis , dipst ick Unknown Analyte Negati ve Not Available [address], [place], [address], 11/05/2024 15:10:50 11/28/19 25 12/03/2024 SURGI JOSUÉ PATHO LOGY surgical pathology VIEW REPORT ACCES GABRIELLA #: [id number] Patie nt Name: MIKE PINO Age-S ex-DO B: 44y F [birth year] Proce dure Date: 11/27 05 Acces gabriella Date: 2024 Pt Acct# : Repor t Date: 2024 Locat ion: OFFIC E Physi colt( s): Nereida Mckinney MD P A T H O L O G Y R E P O R T DIAGN OSIS: Endom etriu m, biops y: Benig n endom etria l polyp . Backg round leonel keith and proli ferat martin-t ype endom etchidiu m. MD cedrick Cottrell 12/03 03:10 PM Gross Descr iptio n: Recei augusto in forma isi label ed Mike luis armando Weidn er and per requi sitio n endom etriu m are multi ple piece s of kwon tissu e measu ring in aggre gate 3.0 x 1.5 x 0.3 cm. The speci men is submi tted entir pushpa in casse tte 1A, M/1. (JFA, CA14, amw1) Gross ing servi charla provi ded by [facility] Ubooly Patho logis 6Scan, d/b/a PathG rou [address] [facility] [place], [address] Lisa harvey MD, [facility]. Micro scopi c Descr iptio n: Micro [...] ols react appro priat pushpa. End of t Techn ical servi charla provi ded by [facility] 6Scan, d/b/a [employer], [address] [place] [address] Lisa harvey MD, [facility] tor. Case revie wed and diagn osis rende red at [facility] logis 6Scan, d/b/a [employer] [employer], [address], [place] [address] Teena moy M.D., [facility]. CONFI DENTI AL Not Available [facility] ([facility]) [address], [place], [address], 12/03/2024 16:12:08 09/1111/27/2024 pregn danisha test, urine HCG negati ve Not Available [id number], [place], [address], 11/27/2024 10:41:40 12/11/1912/11/2024 CBC WITH DIFF PLUS ABSOL CIRCLE COUNT S WBC 5.6 K/uL 3.8-11 .5 Not Available [facility] ([facility]) [address] [place] [address] Dr [address], [place], [address], 12/11/2024 05:35:29 12/11/1912/11/2024 CBC WITH DIFF PLUS ABSOL CIRCLE COUNT S red blood cell count (RBC) 4.19 M/mm3 3.60-5 .30 Not Available [facility] ([facility]) [address] [place] [address] Dr [address], [place], [address], 12/11/2024 05:35:29 12/11/19 25 12/11/2024 CBC WITH DIFF PLUS ABSOL CIRCLE COUNT S hemoglobin (HGB) 13.0 gm/dL 11.5-1 5.5 Not Available [facility] ([facility]) [address] [place] [address] Dr [address]ía, [place], [address], 12/11/2024 05:35:29 12/11/19 25 12/11/2024 CBC WITH DIFF PLUS ABSOL CIRCLE COUNT S hematocrit (HCT) 39.7 % 35.2-4 6.4 Not Available [facility] ([facility]) [address] [place] [address] Dr García, [place], [address], 12/11/2024 05:35:29 12/11/1912/11/2024 CBC WITH DIFF PLUS ABSOL CIRCLE COUNT S MCV 94.7 fL 79.0-9 9.0 Not Available [facility] ([facility]) [address] [place] [address] Dr [address]ía, [place], [address], 12/11/2024 05:35:29 12/11/1912/11/2024 CBC WITH DIFF PLUS ABSOL CIRCLE COUNT S MCH 31.0 pg 26.9-3 5.0 Not Available [facility] ([facility]) [address] [place] [address] Dr [address]ía, [place], [address], 12/11/2024 05:35:29 12/11/1912/11/2024 CBC WITH DIFF PLUS ABSOL CIRCLE COUNT S MCHC 32.7 g/dL 30.4-3 4.8 Not Available [facility] ([facility]) [address] [place] [address] Dr García, [place], [address], 12/11/2024 05:35:29 12/11/1912/11/2024 CBC WITH DIFF PLUS ABSOL CIRCLE COUNT S RDW 43.8 fL 38.6-5 3.8 Not Available [facility] ([facility]) [address] [place] [address] Dr [address], [place], [address], 12/11/2024 05:35:29 12/11/19 25 12/11/2024 CBC WITH DIFF PLUS ABSOL CIRCLE COUNT S platelet count 218 K/cum m 137-39 7 Not Available [facility] ([facility]) [address] [place] [address] Dr [address]ía, [place], [address], 12/11/2024 05:35:29 12/11/1912/11/2024 CBC WITH DIFF PLUS ABSOL CIRCLE COUNT S neutrophils automated 61.4 % 41.0-7 7.0 Not Available [facility] ([facility]) [address] [place] [address] Dr [address]ía, [place], [address], 12/11/2024 05:35:29 12/11/19 25 12/11/2024 CBC WITH DIFF PLUS ABSOL CIRCLE COUNT S lymphocytes automated 28.7 % 14.0-4 8.0 Not Available [facility] ([facility]) [address] [place] [address] Dr [address], [place], [address], 12/11/2024 05:35:29 12/11/1912/11/2024 CBC WITH DIFF PLUS ABSOL CIRCLE COUNT S monocytes automated 7.6 % 4.0-13 .0 Not Available [facility] ([facility]) [address] [place] [address] Dr [address]ía, [place], [address], 12/11/2024 05:35:29 12/11/1912/11/2024 CBC WITH DIFF PLUS ABSOL CIRCLE COUNT S eosinophils automated 1.4 % 0.0-8. 0 Not Available [facility] ([facility]) [address] [place] [address] Dr [address]ía, [place], [address], 12/11/2024 05:35:29 12/11/1912/11/2024 CBC WITH DIFF PLUS ABSOL CIRCLE COUNT S basophils automated 0.9 % 0.0-1. 5 Not Available [facility] ([facility]) [address] [place] [address] Dr García, [place], [address], 12/11/2024 05:35:29 12/11/1912/11/2024 CBC WITH DIFF PLUS ABSOL CIRCLE COUNT S absolute neutrophil count 3.4 K/uL 2.0-8. 2 Not Available [facility] ([facility]) [address] [place] [address] Dr García, [place], [address], 12/11/2024 05:35:29 12/11/1912/11/2024 CBC WITH DIFF PLUS ABSOL CIRCLE COUNT S absolute lymphocyte count 1.6 K/uL 0.9-3. 6 Not Available [facility] ([facility]) [address] [place] [address] Dr [address]ía, [place], [address], 12/11/2024 05:35:29 12/11/1912/11/2024 CBC WITH DIFF PLUS ABSOL CIRCLE COUNT S absolute monocyte count 0.4 K/uL 0.3-1. 0 Not Available [facility]) [address] [place] [address] Dr García, [place], [address], 12/11/2024 05:35:29 12/11/1912/11/2024 CBC WITH DIFF PLUS ABSOL CIRCLE COUNT S absolute eosinophil count 0.1 K/uL 0.0-0. 6 Not Available [facility] ([facility]) [address] [place] [address] Dr [address]ía, [place], [address], 12/11/2024 05:35:29 12/11/1912/11/2024 CBC WITH DIFF PLUS ABSOL CIRCLE COUNT S absolute basophil count 0.1 K/uL 0.0-0. 1 Not Available [facility] ([facility]) [address] [place] [address] Dr [address]ía, [place], [address], 12/11/2024 05:35:29 12/11/19 25 12/11/2024 URINA LYSIS (UA) WITH REFLE X TO MICRO SCOPI C urine type NOT SPECIF IED Not Available [facility] ([facility]) [address] [place] [address] Dr García, [place], [address], 12/11/2024 05:35:29 12/11/1912/11/2024 URINA LYSIS (UA) WITH REFLE X TO MICRO SCOPI C urine color Yellow yellow Not Available [facility] ([facility]) [address] [place] [address] Dr García, [place], [address], 12/11/2024 05:35:29 12/11/19 25 12/11/2024 URINA LYSIS (UA) WITH REFLE X TO MICRO SCOPI C urine appearance Clear clear Not Available [facility] ([facility]) [address] [place] [address] Dr García, [place], [address], 12/11/2024 05:35:29 12/11/1912/11/2024 URINA LYSIS (UA) WITH REFLE X TO MICRO SCOPI C urine specific gravity <1.005 1.005- 1.030 low Not Available [facility] ([facility]) [address] [place] [address] Dr García, [place], [address], 12/11/2024 05:35:29 12/11/19 25 12/11/2024 URINA LYSIS (UA) WITH REFLE X TO MICRO SCOPI C urine pH 6.5 5.0-9. 0 Not Available [facility] ([facility]) [address] [place] [address] Dr García, [place], [address], 12/11/2024 05:35:29 12/11/19 25 12/11/2024 URINA LYSIS (UA) WITH REFLE X TO MICRO SCOPI C urine leukocytes esterase Negati ve negati ve Not Available [facility] ([facility]) [address] [place] [address] Dr García, [place], [address], 12/11/2024 05:35:29 12/11/19 25 12/11/2024 URINA LYSIS (UA) WITH REFLE X TO MICRO SCOPI C urine nitrites Negati ve negati ve Not Available [facility] ([facility]) [address] [place] [address] Dr García, [place], [address], 12/11/2024 05:35:29 12/11/1912/11/2024 URINA LYSIS (UA) WITH REFLE X TO MICRO SCOPI C urine protein Negati ve negati ve Not Available [facility] ([facility]) [address] [place] [address] Dr García, [place], [address], 12/11/2024 05:35:29 12/11/1912/11/2024 URINA LYSIS (UA) WITH REFLE X TO MICRO SCOPI C urine glucose Negati ve negati ve Not Available [facility]) [address] [place] [address] Dr García, [place], [address], 12/11/2024 05:35:29 12/11/1912/11/2024 URINA LYSIS (UA) WITH REFLE X TO MICRO SCOPI C urine ketones Negati ve negati ve Not Available [facility]) [address] [place] [address] Dr García, [place], [address], 12/11/2024 05:35:29 12/11/1912/11/2024 URINA LYSIS (UA) WITH REFLE X TO MICRO SCOPI C urine urobilinogen 0.2 E.U./ dL 0.2-1. 0 Not Available [facility] ([facility]) [address] [place] [address] Dr García, [place], [address], 12/11/2024 05:35:29 12/11/19 25 12/11/2024 URINA LYSIS (UA) WITH REFLE X TO MICRO SCOPI C urine bilirubin Negati ve negati ve Not Available [facility] ([facility]) [address] [place] [address] Dr García, [place], [address], 12/11/2024 05:35:29 12/11/19 25 12/11/2024 URINA LYSIS (UA) WITH REFLE X TO MICRO SCOPI C urine blood Negati ve negati ve Not Available [facility]) [address] [place] [address] Dr García, [place], [address], 12/11/2024 05:35:29 12/11/19 25 12/11/2024 CULTU RE, URINE specimen source Urine - NotSp Not Available [facility]) [address] [place] [address] Dr García, [place], [address], 12/12/2024 01:04:40 12/11/1912/11/2024 CULTU RE, URINE culture, urine See Below Final Repor t : No Signi fican t Growt h Not Available [facility]) [address], [place], [address], 12/12/2024 01:04:40 11/07/1911/06/2024 ultra sound image s RAD bgelly [employer] [id number] 11/27/2024 10:51:19 11/07/1911/05/2024 US, trans vagin al No observ ation record ed. bgelly Not Available 2024 10:51:19 01/08/20 25 01/07/2025 MAMMO , scree ella, tomos ynthe sis, bilat eral No observ ation record ed. KARLIE [id number] t Mammo_southda [facility] [address], [place], [address], 01/08/2025 10:38:19 01/08/2001/07/2025 lay lette r No observ ation record ed. KARLIE [id number] t Mammo_southda [facility] [address], [place], [address], 01/08/2025 10:38:19 Result Notes None recorded. Problems Name Problem SNOMED Code Status Onset Date Resolution Date Notes Provider Name and Address Organization Details Recorded Time Irritable bowel syndrome 97615676 Active RUBY MCKINNEY MD [address], [place], [place], [address], [facility] 5 10:47:51 Anxiety state 296848611 Active RUBY MCKINNEY MD [address], [place], [place], [address], [place] [facility] 5 10:28:55 Abnormal uterine bleeding 81501121211343 Active 2024 8mm ems w fluid, polyp on EMB 5 RUBY MCKINNEY MD [address], [place], [place], [address], [facility] 5 13:07:56 Dysuria 26850370 Active 2024 NISHANT OG [address], [place], [place], [address], [facility] 5 15:10:47 Problem Notes None recorded. Procedures Surgical History Date Name Laterality Status Provider Name and Address Organization Details Recorded Time 01/08/20 25 Date of Last Mammogram completed RUBY MCKINNEY MD [address], [place], [address], [facility] 01/08/2025 08:46:04 12/20/19 25 HYSTEROSCOPY, SURGICAL, WITH BIOPSY OF ENDOMETRIUM AND/OR POLYPECTOMY (SURG) completed Debbie Desai [facility] 01/05/2025 16:29:42 11/28/19 25 Endometrial Biopsy Procedure Note ([facility]) completed RUBY MCKINNEY MD [address], [place], [address], [facility] 11/27/2024 11:02:33 11/28/19 25 Tray completed RUBY MCKINNEY MD [address], [place], [address], [facility] 11/27/2024 11:03:57 11/28/19 25 endometrial biopsy completed RUBY MCKINNEY MD [address], [place], [address], [facility] 12/09/2024 13:06:27 03/19/19 24 Date of Last Colonoscopy completed Flash [facility] 11/05/2024 14:47:31 10/21/19 23 Date of Last Pap Smear completed Flash Griffith [facility] 11/05/2024 14:47:04 03/19/19 Tonsillectomy completed RUBY MCKINNEY MD [address], [place], [address], [facility] 12/09/2024 13:06:05 other specified functional endoscopic sinus surgery - therapeutic endoscopy of nose or sinus completed RUBY MCKINNEY MD [address], [place], [address], [facility] 12/09/2024 13:08:41 Colonoscopy completed Erin Collins(TERM) [facility] 12/08/2024 10:10:12 Imaging Results None recorded. Procedure [...] Available Not Jessica ilable Not Available Vitals Date Recorded Body height Body mass index (BMI) Body weight Systolic And Diastolic Provider Name and Address Organization Details Last Updated DateTime 11/05/2024 160.02 cm 26 kg/m2 95438.08 g 122/62 mm[Hg] Flash Griffith [facility] 11/05/2024 14:51:41 Date Recorded Body height Body mass index (BMI) Body weight Systolic And Diastolic Provider Name and Address Organization Details Last Updated DateTime 11/27/2024 160.02 cm 26.2 kg/m2 06010.67 g 122/68 mm[Hg] Tamiko Alba [facility] 11/27/2024 10:48:06 Date Recorded Body height Body mass index (BMI) Body weight Systolic And Diastolic Provider Name and Address Organization Details Last Updated DateTime 12/10/2024 160.02 cm 25.7 kg/m2 66376.89 g 114/60 mm[Hg] Erin Collins(TERM ) [facility] 12/10/2024 10:28:04 Social History Question Answer Notes LastModified by [employer] Details LastModified Time Tobacco Smoking Status Never Smoker Not Available [facility] 07/17/2024 15:53:33 Do You [...] available 11/27/2024 What Is Your Relationship Status? [email or web address] Information not available 11/27/2024 Sex: Female Functional Status Question Answer Note LastModified by [employer] Details LastModified Time Do you use any [...] virus, quadrivalent, preservative 9 completed Not Available [facility] 12/26/2024 09:45:08 Influenza, split virus, quadrivalent, PF 0 completed Not Available [facility] 12/26/2024 09:45:08 COVID-19 vaccine, vector-nr, rS-Ad26, PF, 0.5 mL 1 completed Not Available [facility] 12/26/2024 09:45:08 Past Encounters Encounter ID Performer Location Encounter Start Date Encounter Closed Date Diagnosis/Indication Diagnosis SNOMED-CT Code Diagnosis ICD10 Code Diagnosis IMO Codes Diagnosis Note [id number] [address], MD [id number] [place] [address] 11/05/2024 14:31:19 11/05/2024 15:14:23 Dysuria 78386228 R30.0 [address]78 11/05/24-de clines urine cx-will call if sx worsen Abnormal u terine bleeding [id number] 9100 N93.9 [id number] 11/05/24-snider ve blood work done-maximus g labs done with PCP next week-will take TSH order to their office in [place]- schedule US in our [place] Mental a [facility] screening [id number] Z13.30 [id number] 11/05/24-ga d7 score 4-phq9 score 0 [id number] RUBY MCKINNEY MD [id number] [facility] [address] [place] [address] 11/06/2024 10:50:48 11/06/2024 11:18:31 Abnormal uterine bleeding [id number] 9100 N93.9 [id number] RUBY MCKINNEY MD [id number] [facility] [address] [place] [address] 11/27/2024 10:38:22 11/27/2024 11:04:03 Abnormal uterine bleeding [id number] 9100 N93.9 [id number] RUBY MCKINNEY MD [id number] [place] [address] 12/10/2024 10:21:43 12/10/2024 10:34:43 Abnormal uterine bleeding [id number] 9100 N93.9 [id number] Anxiety state [id number] F41.1 [id number] RUBY MCKINNEY MD [id number] [address] [place] [address] 12/26/2024 09:41:17 12/26/2024 09:55:44 Postoperative visit [id number] Z48.89 [id number] Abnormal u terine bleeding [id number] 9100 N93.9 [id number] Health Concerns Section Related Observation LastModified by Organization Detai ls LastModified Time None Recorded Concern Status LastModified by Organization Details LastModified Time None Recorded Advance Directives Directive N: Payers Insurance Date Sequence Insurance Name Policy Number Policy Antunez Covered Member ID Antunez Member ID Guarantor Name 01/05/2025 1 [place] [id number] 2 Merari Montano [id number] Merari Montano Notes Date Note Type Note Provider Name and Address Organization Details Recorded Time 11/05/2024 text/html 11/05/24 here with c/o dysuria, urine odor, and frequency x 2 days. also having heavier, crampier, longer periods x2 mo. states she will have spotting x 2 days then 4-5days of no bleeding then a heavy period x 4 days then 2 days off then bleeding again. if she has intercourse with she will start bleeding like a period again. denies dyspareunia, vaginal sx, std concerns. on heaviest days she saturates a regular pad and tampon q2h. hx of vasectomy. -jayy OG [address], [place], [address], [facility] 11/05/2024 15:20:12 11/27/2024 text/html Nozzle Worker offered per [facility] policy. Nozzle Worker was . Reason For Declination: RUBY MCKINNEY MD [address], [place], [address], [facility] 11/27/2024 11:21:55 12/10/2024 text/html 44 YO G 1 P 1 presents for preoperative consultation. She has been scheduled for hysteroscopy myosure [facility].Site of procedure: B dec 3SSurgeon: gellyCurrent gynecologic complaints: aubIndication for surgery: polyp on embConfirmatory findings on imaging/pathology: polyp on embPrior therapy (if applicable):Andre gonzales PMH/PSH:discussed polyp, that hscope may be NL and we will still sample entire lining, dsicussed mostly benign nature of polyps, may have infarcted off by time of syg, or pass w upcoming menses. regardless, is diagnostic and therapeutic, discussed risks, states mom comign along day of sgy RUBY MCKINNEY MD [address], [place], [address], [facility] 12/10/2024 10:34:38 12/26/2024 text/html feels great! polyps benign, call if AUB returns.had benign myosure polypectomy on 12-19-24 RUBY MCKINNEY MD [address], [place], [address], [facility] 12/26/2024 09:53:13 OBGyn Episode Ob Episode Information Episode Created Date Number of Fetuses Patient Bloodtype Patient rh Status Prepregnancy Weight lbs Domestic Partner Domestic Partner Phone Father Name Assistant Account Executive Status 08/02/19 25 1 CLOSED Fetus Data First Name Last Name Admitted to NICU Weight (g) Sex Living Outcome Pediatric Complications Fetus ID Race Codes Race Delivery Type M [id number] Vaginal Mick Calculation Initial Mick Date Initial Exam Date Initial Exam Provider Initial Ultrasound Date Last Menstrual Period Date Ultra Sound Weeks Gestation 0 Eighteen To Twenty Week Mick Update Ultra Sound Date Fundal Height At Umbil Quickening Date Ultra Sound Latest Weeks Gestation Final Mick Confirmed By Final Mick Confirmed Date Final Mick Date Ultra Sound Latest Days Gestation 0 0 Menstrual History Last Menstrual Date Menses Monthly On Bcp Conception Prior Menses Frequency Hcg Plus Date Menarche Onset Age Delivery Information Delivery Date Delivery Type Labor Anesthesia Weeks Gestation Incision Type Labor Labor Length Hrs Delivered By Post Complications Tubal Sterilization Discharge Date Comments 0 37 [facility] , fetus_1_w eight_lbs : '6# 2oz'; Discharge Information Feeding Method Contraceptive Method Maternal HG B and HCT Levels
--- OUTSIDE RECORDS SUMMARY | 2025-02-06 14:23 | XMS_ITS | Continuity of Care Document ---
Author Organization [facility], [id number] [facility] Address [address] [place] [address] Assessment No assessment recorded. Plan of Treatment Reminders Order Date Submit Date Provider Last Modified By Organization Details Last Modified Time Details Appointments ANNUAL- EST 15 2025 12:30P M NISHANT OG Not available Not available Not available Screening Mammogram 2025 09:00A M [id number] MO Not available Not available Not available Lab None recorded. Referral None recorded. Procedures None recorded. Surgeries None recorded. Imaging None recorded. Medication Orders None recorded. Patient TargetsNo targets recorded. Patient Instructions Encounter Date Encounter Id Patient Instructions Last Modified By Organization Details Last Modified Time 12/10/2024 [id number] The indication for surgery was discussed with [...] endom etriu m. Donovan Khalil MD elect елена patel elizabeth d 12/03 03:10 PM Gross Descr [...] provi ded by [facility], d/b/a Path[facility] joseph [address] [place], [address] Justi inna Palacios. Anette harvey MD, Labor [facility]. Micro scopi c Descr iptio n: Micro [...] Techn ical servi charla provi ded by [facility], d/b/a Path[facility] opal, [address] [place] [address] Lisa harvey MD, Labor atory [facility]. Case revie wed and diagn osis rende red at [facility] Patho logis ts, [facility], d/b/a Path[facility] joseph, [address], [place] [address] Teena moy M.D., Labor atory Dire [facility]. CONFI DENTI AL Not Available [facility] ([facility]) [address] [place] [address] Dr García, [place], [address], 12/03/2024 16:12:08 11/28/1911/27/2024 pregn danisha test, urine HCG negati ve Not Available [id number], [place], [address], 11/27/2024 10:41:40 12/11/19 25 12/11/2024 CBC WITH DIFF PLUS ABSOL CHALKYITSIK COUNT S WBC 5.6 K/uL 3.8-11 .5 Not Available [facility]) [address] [place] [address] Dr García, [place], [address], 12/11/2024 05:35:29 12/11/19 25 12/11/2024 CBC WITH DIFF PLUS ABSOL CHALKYITSIK COUNT S red blood cell count (RBC) 4.19 M/mm3 3.60-5 .30 Not Available [facility] ([facility]) [address] [place] [address] Dr García, [place], [address], 12/11/2024 05:35:29 12/11/19 25 12/11/2024 CBC WITH DIFF PLUS ABSOL CHALKYITSIK COUNT S hemoglobin (HGB) 13.0 gm/dL 11.5-1 5.5 Not Available [facility]) [address] [place] [address] Dr García, [place], [address], 12/11/2024 05:35:29 12/11/1912/11/2024 CBC WITH DIFF PLUS ABSOL CHALKYITSIK COUNT S hematocrit (HCT) 39.7 % 35.2-4 6.4 Not Available [facility] ([facility]) [address] [place] [address] Dr García, [place], [address], 12/11/2024 05:35:29 12/11/1912/11/2024 CBC WITH DIFF PLUS ABSOL CHALKYITSIK COUNT S MCV 94.7 fL 79.0-9 9.0 Not Available [facility] ([facility]) [address] [place] [address] Dr García, [place], [address], 12/11/2024 05:35:29 12/11/1912/11/2024 CBC WITH DIFF PLUS ABSOL CHALKYITSIK COUNT S MCH 31.0 pg 26.9-3 5.0 Not Available [facility]) [address] [place] [address] Dr García, [place], [address], 12/11/2024 05:35:29 12/11/1912/11/2024 CBC WITH DIFF PLUS ABSOL CHALKYITSIK COUNT S MCHC 32.7 g/dL 30.4-3 4.8 Not Available [facility]) [address] [place] [address] Dr García, [place], [address], 12/11/2024 05:35:29 12/11/1912/11/2024 CBC WITH DIFF PLUS ABSOL CHALKYITSIK COUNT S RDW 43.8 fL 38.6-5 3.8 Not Available [facility]) [address] [place] [address] Dr García, [place], [address], 12/11/2024 05:35:29 12/11/1912/11/2024 CBC WITH DIFF PLUS ABSOL CHALKYITSIK COUNT S platelet count 218 K/cum m 137-39 7 Not Available [facility]) [address] [place] [address] Dr García, [place], [address], 12/11/2024 05:35:29 12/11/1912/11/2024 CBC WITH DIFF PLUS ABSOL CHALKYITSIK COUNT S neutrophils automated 61.4 % 41.0-7 7.0 Not Available [facility] ([facility]) [address] [place] [address] Dr García, [place], [address], 12/11/2024 05:35:29 12/11/1912/11/2024 CBC WITH DIFF PLUS ABSOL CHALKYITSIK COUNT S lymphocytes automated 28.7 % 14.0-4 8.0 Not Available [facility]) [address] [place] [address] Dr García, [place], [address], 12/11/2024 05:35:29 12/11/1912/11/2024 CBC WITH DIFF PLUS ABSOL CHALKYITSIK COUNT S monocytes automated 7.6 % 4.0-13 .0 Not Available [facility]) [address] [place] [address] Dr García, [place], [address], 12/11/2024 05:35:29 12/11/1912/11/2024 CBC WITH DIFF PLUS ABSOL CHALKYITSIK COUNT S eosinophils automated 1.4 % 0.0-8. 0 Not Available [facility]) [address] [place] [address] Dr García, [place], [address], 12/11/2024 05:35:29 12/11/1912/11/2024 CBC WITH DIFF PLUS ABSOL CHALKYITSIK COUNT S basophils automated 0.9 % 0.0-1. 5 Not Available [facility]) [address] [place] [address] Dr García, [place], [address], 12/11/2024 05:35:29 12/11/1912/11/2024 CBC WITH DIFF PLUS ABSOL CHALKYITSIK COUNT S absolute neutrophil count 3.4 K/uL 2.0-8. 2 Not Available [facility]) [address] [place] [address] Dr García, [place], [address], 12/11/2024 05:35:29 12/11/1912/11/2024 CBC WITH DIFF PLUS ABSOL CHALKYITSIK COUNT S absolute lymphocyte count 1.6 K/uL 0.9-3. 6 Not Available [facility]) [address] [place] [address] Dr García, [place], [address], 12/11/2024 05:35:29 12/11/1912/11/2024 CBC WITH DIFF PLUS ABSOL CHALKYITSIK COUNT S absolute monocyte count 0.4 K/uL 0.3-1. 0 Not Available [facility]) [address] [place] [address] Dr García, [place], [address], 12/11/2024 05:35:29 12/11/19 25 12/11/2024 CBC WITH DIFF PLUS ABSOL CHALKYITSIK COUNT S absolute eosinophil count 0.1 K/uL 0.0-0. 6 Not Available [facility]) [address] [place] [address] Dr García, [place], [address], 12/11/2024 05:35:29 12/11/1912/11/2024 CBC WITH DIFF PLUS ABSOL CHALKYITSIK COUNT S absolute basophil count 0.1 K/uL 0.0-0. 1 Not Available [facility]) [address] [place] [address] Dr García, [place], [address], 12/11/2024 05:35:29 12/11/1912/11/2024 URINA LYSIS (UA) WITH REFLE X TO MICRO SCOPI C urine type NOT SPECIF IED Not Available [facility] [address] [place] [address] Dr García, [place], [address], 12/11/2024 05:35:29 12/11/1912/11/2024 URINA LYSIS (UA) WITH REFLE X TO MICRO SCOPI C urine color Yellow yellow Not Available [facility] [address] [place] [address] Dr García, [place], [address], 12/11/2024 05:35:29 12/11/19 25 12/11/2024 URINA LYSIS (UA) WITH REFLE X TO MICRO SCOPI C urine appearance Clear clear Not Available [facility] [address] [place] [address] Dr García, [place], [address], 12/11/2024 05:35:29 12/11/1912/11/2024 URINA LYSIS (UA) WITH REFLE X TO MICRO SCOPI C urine specific gravity <1.005 1.005- 1.030 low Not Available [facility]) [address] [place] [address] Dr García, [place], [address], 12/11/2024 05:35:29 12/11/19 25 12/11/2024 URINA LYSIS (UA) WITH REFLE X TO MICRO SCOPI C urine pH 6.5 5.0-9. 0 Not Available [facility] [address] [place] [address] Dr García, [place], [address], 12/11/2024 05:35:29 12/11/1912/11/2024 URINA LYSIS (UA) WITH REFLE X TO MICRO SCOPI C urine leukocytes esterase Negati ve negati ve Not Available [facility] [address] [place] [address] Dr García, [place], [address], 12/11/2024 05:35:29 12/11/1912/11/2024 URINA LYSIS (UA) WITH REFLE X TO MICRO SCOPI C urine nitrites Negati ve negati ve Not Available [facility] [address] [place] [address] Dr García, [place], [address], 12/11/2024 05:35:29 12/11/19 25 12/11/2024 URINA LYSIS (UA) WITH REFLE X TO MICRO SCOPI C urine protein Negati ve negati ve Not Available [facility] [address] [place] [address] Dr García, [place], [address], 12/11/2024 05:35:29 12/11/1912/11/2024 URINA LYSIS (UA) WITH REFLE X TO MICRO SCOPI C urine glucose Negati ve negati ve Not Available [facility]) [address] [place] [address] Dr García, [place], [address], 12/11/2024 05:35:29 12/11/19 25 12/11/2024 URINA LYSIS (UA) WITH REFLE X TO MICRO SCOPI C urine ketones Negati ve negati ve Not Available [facility]) [address] [place] [address] Dr García, [place], [address], 12/11/2024 05:35:29 12/11/19 25 12/11/2024 URINA LYSIS (UA) WITH REFLE X TO MICRO SCOPI C urine urobilinogen 0.2 E.U./ dL 0.2-1. 0 Not Available [facility] [address] [place] [address] Dr García, [place], [address], 12/11/2024 05:35:29 12/11/19 25 12/11/2024 URINA LYSIS (UA) WITH REFLE X TO MICRO SCOPI C urine bilirubin Negati ve negati ve Not Available [facility] [address] [place] [address] Dr García, [place], [address], 12/11/2024 05:35:29 12/11/19 25 12/11/2024 URINA LYSIS (UA) WITH REFLE X TO MICRO SCOPI C urine blood Negati ve negati ve Not Available [facility]) [address] [place] [address] Dr García, [place], [address], 12/11/2024 05:35:29 12/11/19 25 12/11/2024 CULTU RE, URINE specimen source Urine - NotSp Not Available [facility]) [address] [place] [address] Dr García, [place], [address], 12/12/2024 01:04:40 12/11/1912/11/2024 CULTU RE, URINE culture, urine See Below Final Repor t : No Signi fican t Growt h Not Available [facility] [address] [place] [address] Dr García, [place], [address], 12/12/2024 01:04:40 01/08/2001/07/2025 MAMMO , scree ella, tomos ynthe sis, bilat eral No observ ation record ed. KARLIE [id number] t Mammo_southda [facility] [address] [facility] [address], [place], [address], 01/08/2025 10:38:19 01/08/2001/07/2025 lay lette r No observ ation record ed. KARLIE [id number] t Mammo_southda [facility] [address] [facility] [address], [place], [address], 01/08/2025 10:38:19 Result Notes None recorded. Problems Name Problem SNOMED Code Status Onset Date Resolution Date Notes Provider Name and Address Organization Details Recorded Time Irritable bowel syndrome 92978490 Active RUBY MCKINNEY MD [address], [place], [place], [address], [facility] 5 10:47:51 Anxiety state 494521146 Active RUBY MCKINNEY MD [address], [place], [place], [address], [facility] 5 10:28:55 Abnormal uterine bleeding 14738858337777 Active 2024 8mm ems w fluid, polyp on EMB 5 RUBY MCKINNEY MD [address] [facility] [address], [place], [place], [address], [facility] 5 13:07:56 Dysuria 16492800 Active 2024 NISHANT OG [address], [place], [place], [address], [facility] 5 15:10:47 Problem Notes None recorded. Procedures Surgical History Date Name Laterality Status Provider Name and Address Organization Details Recorded Time 01/08/20 Date of Last Mammogram completed RUBY MCKINNEY MD [address], [place], [address], [facility] 01/08/2025 08:46:04 12/20/19 25 HYSTEROSCOPY, SURGICAL, WITH BIOPSY OF ENDOMETRIUM AND/OR POLYPECTOMY (SURG) completed Debbie Desai [facility] 01/05/2025 16:29:42 11/28/19 25 Endometrial Biopsy Procedure Note ([facility]) completed RUBY MCKINNEY MD [address], [place], [address], [facility] 11/27/2024 11:02:33 11/28/19 25 Tray completed RUBY MCKINNEY MD [address] [facility] [address], [place], [address], [facility] 11/27/2024 11:03:57 11/28/19 25 endometrial biopsy completed RUBY MCKINNEY MD [address] [facility] [address], [place], [address], [facility] 12/09/2024 13:06:27 03/19/19 24 Date of Last Colonoscopy completed Flash Griffith [facility] 11/05/2024 14:47:31 10/21/19 23 Date of Last Pap Smear completed Flash Griffith [facility] 11/05/2024 14:47:04 03/19/19 01 Tonsillectomy completed RUBY MCKINNEY MD [address] [facility] [address], [place], [address], [facility] 12/09/2024 13:06:05 other specified functional endoscopic sinus surgery - therapeutic endoscopy of nose or sinus completed RUBY MCKINNEY MD [address] [facility] [address], [place], [address], [facility] 12/09/2024 13:08:41 Colonoscopy completed Erin Collins(TERM) [facility] 12/08/2024 10:10:12 Imaging Results None recorded. [...] Updated DateTime 12/10/2024 160.02 cm 25.7 kg/m2 90825.89 g 114/60 mm[Hg] Erin Collins(TERM ) [facility] 12/10/2024 10:28:04 Social History Question Answer Notes LastModified by Organizat ion Details LastModified Time Tobacco Smoking Status Never Smoker Not Available [facility] 07/17/2024 15:53:33 Do You Have An Advance [...] available 11/27/2024 What Is Your Relationship Status? [email or web address] Information not available 11/27/2024 Sex: Female Functional [...] virus, quadrivalent, preservative 9 completed Not Available [facility] 12/26/2024 09:45:08 Influenza, split virus, quadrivalent, PF 0 completed Not Available [facility] 12/26/2024 09:45:08 COVID-19 vaccine, vector-nr, rS-Ad26, PF, 0.5 mL 1 completed Not Available [facility] 12/26/2024 09:45:08 Past Encounters Encounter ID Performer Location Encounter Start Date Encounter Closed Date Diagnosis/Indication Diagnosis SNOMED-CT Code Diagnosis ICD10 Code Diagnosis IMO Codes Diagnosis Note [id number] RUBY MCKINNEY MD [id number] 7 [facility] [[email or web address] [address] [facility] [address] [place] [address] 11/27/2024 10:38:22 11/27/2024 11:04:03 Abnormal uterine bleeding [id number] 9100 N93.9 [id number] RUBY MCKINNEY MD [id number] [facility] [address] [place] [address] 12/10/2024 10:21:43 12/10/2024 10:34:43 Abnormal uterine bleeding 8065742896 9100 N93.9 [id number] Anxiety state 115881044 F41.1 Health Concerns Section Related Observation LastModified by Organization Detai ls LastModified Time None Recorded Concern Status LastModified by Organization Details LastModified Time None Recorded Payers Encounter Date Sequence Insurance Name Policy Number Policy Antunez Covered Member ID Antunez Member ID Guarantor Name 12/10/2024 1 [place] [id number] 2 Merari Montano [id number] Merari Montano Notes Date Note Type Note Provider Name and Address Organization Details Recorded Time 12/10/2024 text/html 44 YO G 1 P 1 presents for preoperative consultation. She has been scheduled for hysteroscopy myosure [facility].Site of procedure: SJB dec 3SSurgeon: gellyCurrent gynecologic complaints: aubIndication for surgery: polyp on embConfirmatory findings on imaging/pathology: polyp on embPrior therapy (if applicable):Relevan t PMH/PSH:discussed polyp, that hscope may be NL and we will still sample entire lining, dsicussed mostly benign nature of polyps, may have infarcted off by time of syg, or pass w upcoming menses. regardless, is diagnostic and therapeutic, discussed risks, states mom comign along day of sgy RUBY MCKINNEY MD [address] [facility] [address], [place], [address], [facility] 12/10/2024 10:34:38 OBGyn Episode No OBEpisode recorded.
--- OUTSIDE RECORDS SUMMARY | 2025-02-06 14:23 | XMS_ITS | Clinical Summary ---
Author Organization [facility] Address [address] [place] [address] Care Team Providers Care Case Resolution Specialist Name Role Phone Alfreda Monterroso MD Primary Care Provider [phone] Source Comments [facility],non-owned Affiliates and Associated Physician Practices is amultiple site organization consisting of ambulatory clinics and hospital sitesin [place], [place], [place] and [place]. This disclosure is being madepursuant to the Care Everywhere program and may not contain all information available regarding this patient. Last updated 17.[facility] Medications * Be aware that medications may not be up to date on this document. Alwaysverify current medications with the patient. hyoscyamine 0.125 MG tablet Take 125 mcg by mouth q4h PRN (Cramping). 120 tablet 3 03/13/2017 Active escitalopram (LEXAPRO) 10 MG tablet Take 10 mg by mouth. 12/21/2016 Active Active Problems Problem Noted Date Diagnosed Date Melena 12/21/2016 Other specified symptoms and signs involving the digestive system and abdomen 12/21/2016 Left lower quadrant pain 12/21/2016 Family History Medical History Relation Name Comments None Known Brother Status: Alive Hypertension Father Status: Alive Osteoporosis Mother Status: Alive Thyroid Disease Sister Status: Aliv e Relation Name Status Comments Brother Father Mother Sister Social History Tobacco Use Types Packs/Day Years Used Date Smoking Tobacco: Never Smokeless Tobacco: Never Alcohol Use Standard Drinks/Week Comments No 0 (1 standard drink = 0.6 oz pur e alcohol) Comments Unknown Sex and Gender Information Value Date Recorded Sex Assigned at Not on file 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 Gender Identity Not on file Sexual Orientation Not on file Last Filed Vital Signs Vital Sign Reading Time Taken Comments Blood Pressure 108/70 12/21/2016 9:04 AM CDT Pulse 54 12/21/2016 9:04 AM CDT Temperature 36.4 C (97.5 F) 12/21/2016 9:04 AM CDT Respiratory Rate 16 12/21/2016 9:04 AM CDT Oxygen Saturation 99% 12/21/2016 9:04 AM CDT Inhaled Oxygen Concentration - - Weight 74.5 kg (164 lb 3.2 oz) 12/21/2016 9:04 A M CDT Height 157.5 cm (5' 2) 12/21/2016 9:04 AM CDT Body Mass Index 30.03 12/21/2016 9:04 AM CDT Plan of Treatment Health Maintenance Due Date Last Done Comments COLOGUARD (AGES 45-75) - COL ON CA SCREENING 1979 COLON MONITORING 1979 COLONOSCOPY - COLON CA SCREENING 1979 CT COLONOGRAPHY - COLON CA SCREENING 1979 Colorectal Cancer Screening 1979 FIT - COLON CA SCREENING 1979 FLEX SIG - COLON CA SCREENING 1979 LIPID TESTING 1979 MAMMOGRAM 1979 HIV SCREENING 07/31/1994 HEPATITIS C SCREENING 07/27/1997 DTAP/TDAP/TD VACCINES (1 - Tdap) 07/31/1998 HEPATITIS B VACCINE (1 of 3 - 19+ 3-dose series) 07/31/1998 PAP SMEAR 07/31/2000 HPV VACCINE (1 - 3-dose SCDM series) 07/31/2006 Cervical Cancer Screening 07/31/2009 PAP with HPV 07/31/2009 DEPRESSION SCREENING 03/19/2024 COVID-19 VACCINE (1 - 2024-2 6 season) 2024 INFLUENZA VACCINE (#1) 2024 ZOSTER VACCINE (1 of 2) 07/31/2029 HIB VACCINE Aged Out No longer eligi ble based on patient's age to complete this topic MENINGOCOCCAL (Group B) VACC INE SHARED DECISION-MAKING Aged Out No longer eligibl e based on patient's age to complete this topic MENINGOCOCCAL GROUPS A/C/Y/W VACCINE Aged Out No longer eligible b ased on patient's age to complete this topic PNEUMOCOCCAL VACCINE Aged Out No long er eligible based on patient's age to complete this topic Insurance AET[employer] Care Teams Case Resolution Specialist Relationship Specialty Start Date End Date Alfreda Monterroso MD PCP - General 08/28/16
--- OUTSIDE RECORDS SUMMARY | 2025-02-06 14:23 | XMS_ITS | Encounter Summary ---
Author Organization [facility] Address [address] [place] [address] Care Team Providers Care Quality Control Name Role Phone Alfreda Monterroso MD Primary Care Provider [phone] Encounter Details Date Type Department Care Team (Late st Contact Info) Description 08/24/2018 Abstract [facility] CONVERSION [id number] [id number] , Generic Conversion, Social History Tobacco Use Types Packs/Day Years Used Date Smoking Tobacco: Never Smokeless Tobacco: Never Alcohol Use Standard Drinks/Week Comments No 0 (1 standard drink = 0.6 oz pur e alcohol) AUDIT-C Answer Date Recorded Frequency of Alcohol Consumption Never 02/14/2018 Average Number of Drinks Not on file 018 Frequency of Binge Drinking Not on file 01/18 Comments Unknown Sex and Gender Information Value Date Recorded Sex Assigned at Female 02/14/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 Legal Sex Female 8:24 PM CDT Gender Identity Female 02/14/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 Sexual Orientation Straight 02/14/2018 5: 41 PM MORTGAGE SALES MANAGER documented as of this encounter Plan of Treatment Not on file documented as of this encounter Visit Diagnoses Not on filedocumented in this encounter Additional Health Concerns Infection Onset Date Last Indicated Resolved Time COVID-19 Rule Out 03/01/2022 03/01/2022 03/01/2022 9:39 AM MORTGAGE SALES MANAGER COVID-19 Rule Out 03/01/2022 03/01/2022 03/02/2022 6:38 PM MORTGAGE SALES MANAGER documented as of this encounter Care Teams Quality Control Relationship Specialty Start Date End Date Alfreda Monterroso MD PCP - General FAMILY PRACTICE 02/12/18 documented as of this encounter
[2025-02-06 14:24] VITALS: BP 112/73; PULSE 88; RESP 16; TEMP 36.9; O2SAT 98
--- OUTSIDE RECORDS SUMMARY | 2025-02-06 14:24 | XMS_ITS | Continuity of Care Document ---
Author Organization [facility], [id number]_[place] Address [address] [place] [address] Assessment No assessment recorded. Plan of Treatment Reminders Order Date Submit Date Provider Last Modified By Organization Details Last Modified Time Details Appointments ANNUAL- EST 15 2025 12:30P M NISHANT OG Not available Not available Not available Screening Mammogram 2025 09:00A M [id number] [place] Not available Not available Not available Lab test, urine 2024 025 bgelly [id number]_[place], [address] [place] [address] [address], [place], [address], 11/27/2024 11:31:38 surgical pathology study 2024 025 KARLIE [facility] ([facility]), [address], [place], [address], 12/03/2024 16:12:09 Referral None recorded. Procedures None recorded. Surgeries None recorded. Imaging None recorded. Medication Orders None recorded. Patient TargetsNo targets recorded. Patient InstructionsNo instructions recorded. Reason for Referral None Reported. Results Created Date Observation Date Name Description Value Unit Range Abnormal Flag Note LastModifiedBy Organization Detail LastModifiedTime 11/06/1911/05/2024 urina lysis , dipst ick Unknown Analyte Negati ve Not Available [id number] , [place], [address], 11/05/2024 15:10:50 11/06/19 25 11/05/2024 urina lysis , dipst ick Unknown Analyte Negati ve Not Available [id number] [place], [place] [address]_[facility] [address] , [place], [address], 11/05/2024 15:10:50 11/06/19 25 11/05/2024 urina lysis , dipst ick Unknown Analyte Trace Not Available [address] , [place], [address], 11/05/2024 15:10:50 11/06/19 25 11/05/2024 urina lysis , dipst ick Unknown Analyte 1.015 Not Available [facility] [address] [place], [place] [address] , [place], [address], 11/05/2024 15:10:50 11/06/19 25 11/05/2024 urina lysis , dipst ick Unknown Analyte Negati ve Not Available [id number] [place], [place] [address] , [place], [address], 11/05/2024 15:10:50 11/06/19 25 11/05/2024 urina lysis , dipst ick Unknown Analyte 6.0 Not Available [facility] [address] [place], [place] [address] , [place], [address], 11/05/2024 15:10:50 11/06/19 25 11/05/2024 urina lysis , dipst ick Unknown Analyte Trace Not Available [address] [place], [place] [address]cre[facility] [address] [place], [address], 11/05/2024 15:10:50 11/06/19 25 11/05/2024 urina lysis , dipst ick Unknown Analyte 0.2 Not Available [facility] [address] [place], [place] [address], [place], [address], 11/05/2024 15:10:50 11/06/19 25 11/05/2024 urina lysis , dipst ick Unknown Analyte negati ve Not Available [id number] [place], [place] [address], [place], [address], 11/05/2024 15:10:50 11/06/19 25 11/05/2024 urina lysis , dipst ick Unknown Analyte Negati ve Not Available [address], [place], [address], 11/05/2024 15:10:50 11/28/19 25 12/03/2024 SURGI JOSUÉ [...] keith and proli ferat martin-t ype endom etriu m. Donovan Khalil MD elect елена patel elizabeth d 12/03 03:10 PM Gross Descr iptio n: Recei augusto in forma isi label ed Mike flores and per requi sitio n endom etriu m are multi ple piece s of kwon tissu e measu ring in aggre gate 3.0 x 1.5 x 0.3 cm. The speci men is submi tted entir pushpa in casse tte 1A, M/1. (JFA, CA14, amw1) Gross ing servi charla provi ded by [facility], d/b/a PathG roucole [address] [place] [place], [address] Lisa harvey MD, [facility]. Micro scopi c Descr iptio n: [...] Techn ical servi charla provi ded by [facility], d/b/a Path rou, [address] [place] [address] Lisa harvey MD, [facility]. Case revie wed and diagn osis rende red at [facility], d/b/a Path rou, [address], [place] [address] Teena moy M.D., [facility]. CONFI DENTI AL Not Available [facility] ([facility]) [address], [place], [address], 12/03/2024 16:12:08 11/28/19 25 11/27/2024 pregn danisha test, urine HCG negati ve Not Available [id number] [email or web address] [address], [place], [address], 11/27/2024 10:41:40 11/07/19 25 11/06/2024 ultra sound image s RAD bgelly [employer] [id number] 11/27/2024 10:51:19 11/07/19 25 11/05/2024 US, trans vagin al No observ ation record ed. bgelly Not Available 2024 10:51:19 01/08/20 25 01/07/2025 MAMMO , scree ella, tomos ynthe sis, bilat eral No observ ation record ed. KARLIE Mr814_wysryrd t Mammo_[facility] [address], [place], [address], 01/08/2025 10:38:19 01/08/20 25 01/07/2025 lay lette r No observ ation record ed. KARLIE Je549_bcpwuho t Mammo_[facility] [address], [place], [address], 01/08/2025 10:38:19 Result Notes None recorded. Problems Name Problem SNOMED Code Status Onset Date Resolution Date Notes Provider Name and Address Organization Details Recorded Time Irritable bowel syndrome 55961443 Active RUBY MCKINNEY MD [address], [place], [place], [address], [facility] 5 10:47:51 Anxiety state 012902418 Active RUBY MCKINNEY MD [address], [place], [place], [address], [facility] 5 10:28:55 Abnormal uterine bleeding 88578715858189 Active 2024 8mm ems w fluid, polyp on EMB 5 RUBY MCKINNEY MD [address], [place], [place], [address], [facility] 13:07:56 Dysuria 35919976 Active 2024 NISHANT OG [address], [place], [address], [facility] 15:10:47 Problem Notes None recorded. Procedures Surgical History Date Name Laterality Status Provider Name and Address Organization Details Recorded Time 01/08/20 25 Date of Last Mammogram completed RUBY MCKINNEY MD [address], [place], [address], [facility] 01/08/2025 08:46:04 12/20/19 25 HYSTEROSCOPY, SURGICAL, WITH BIOPSY OF ENDOMETRIUM AND/OR POLYPECTOMY (SURG) completed Debbie Desai [facility] 01/05/2025 16:29:42 11/28/19 25 Endometrial Biopsy Procedure Note ([facility]) completed RUBY MCKINNEY MD [address], [place], [address], [facility] 11/27/2024 11:02:33 11/28/19 25 Tray completed RUBY MCKINNEY MD [address], [place], [address], [facility] 11/27/2024 11:03:57 11/28/19 25 endometrial biopsy completed RUBY MCKINNEY MD [address], [place], [address], [facility] 12/09/2024 13:06:27 03/19/19 24 Date of Last Colonoscopy completed Flash Griffith [facility] 11/05/2024 14:47:31 10/21/19 23 Date of Last Pap Smear completed Flash Griffith [facility] 11/05/2024 14:47:04 03/19/19 01 Tonsillectomy completed RUBY MCKINNEY MD [address], [place], [address], [facility] 12/09/2024 13:06:05 other specified functional endoscopic sinus surgery - therapeutic endoscopy of nose or sinus completed RUBY MCKINNEY MD [address], [place], [address], [facility] 12/09/2024 13:08:41 Colonoscopy completed Erin Collins(TERM) [facility] 12/08/2024 10:10:12 Imaging Results None recorded. [...] Updated DateTime 11/27/2024 160.02 cm 26.2 kg/m2 52210.67 g 122/68 mm[Hg] Tamiko Alba [facility] 11/27/2024 10:48:06 Social History Question Answer Notes LastModified by [...] available 11/27/2024 What Is Your Relationship Status? Information not available 11/27/2024 Sex: Female Functional [...] Grandmother Malignant neoplastic disease Cancer mgm-no n elisha nds lympho ma Not available 07/17/2024 15:07:35 [...] preservative 9 completed Not Available [facility] 12/26/2024 09:45:08 Influenza, split virus, quadrivalent, PF 0 completed Not Available [facility] 12/26/2024 09:45:08 COVID-19 vaccine, vector-nr, rS-Ad26, PF, 0.5 mL 1 completed Not Available [facility] 12/26/2024 09:45:08 Past Encounters Encounter ID Performer Location Encounter Start Date Encounter Closed Date Diagnosis/Indication Diagnosis SNOMED-CT Code Diagnosis ICD10 Code Diagnosis IMO Codes Diagnosis Note [id number], MD [id number] [place] [address] 11/05/2024 14:31:19 11/05/2024 15:14:23 Dysuria 68126702 R30.0 [address]7538 11/05/24-de clines urine cx-will call if sx worsen Abnormal u terine bleeding 7049572720 9100 N93.9 [id number] 11/05/24-snider ve blood work done-maximus harvey labs done with PCP next week-will take TSH order to their office in [place]- schedule US in our [place] office Mental hea lt screening 343886313 Z13.30 [id number] 11/05/24-ga d7 score 4-phq9 score 0 [id number] RUBY MCKINNEY MD [id number] [facility] [address] [place] [address] 11/06/2024 10:50:48 11/06/2024 11:18:31 Abnormal uterine bleeding 0667445512 9100 N93.9 [id number] RUBY MCKINNEY MD [id number] [facility] [address] [place] [address] 11/27/2024 10:38:22 11/27/2024 11:04:03 Abnormal uterine bleeding 7642053692 9100 N93.9 [id number] Health Concerns Section Related Observation LastModified by Organization Detai ls LastModified Time None Recorded Concern Status LastModified by Organization Details LastModified Time None Recorded Payers Encounter Date Sequence Insurance Name Policy Number Policy Antunez Covered Member ID Antunez Member ID Guarantor Name 11/27/2024 1 [place] [id number] 2 Merari Montano [id number] Merari Montano Notes Date Note Type Note Provider Name and Address Organization Details Recorded Time 11/27/2024 text/html Heel Wheeler offered per [facility] policy. Heel Wheeler was . Reason For Declination: RUBY MCKINNEY MD [address], [place], [address], [facility] 11/27/2024 11:21:55 OBGyn Episode No OBEpisode recorded.
--- NOTE | 2025-02-06 14:30 | ED.EAR ---
HPI - Ear Problem General Chief complaint: Ear Stated complaint: Ear pain Time Seen by Provider: 02/06/25 14:30 Source: patient and RN notes reviewed Mode of arrival: ambulatory Limitations: no limitations History of Present Illness HPI Narrative: 44 year old female presents with concern for bilateral ear pain and sore throat. She reports some runny nose. She denies fever, aches, chills, sweats. She has been taking allergy medicine MD Complaint: ear pain Related Data Home Medications ?Medication ?Instructions ?Recorded ?Confirmed ?Last Taken ?Type bupropion HCl 300 mg 24 hr tablet, mg PO 02/06/25 Unknown History extended release Allergies Allergy/AdvReac Type Severity Reaction Status Date / Time No Known Allergies Allergy Verified 02/06/25 14:31 Review of Systems Review of Systems: CONSTITUTIONAL: Denies malaise, chills, sweats, or fever. EYES: Denies visual changes, redness, or discharge. ENT: Denies rhinorrhea, and sore throat. Reports bilateral ear pain CARDIOVASCULAR: Denies chest pain, palpitations, or edema. RESPIRATORY: Denies cough. Denies dyspnea. GASTROINTESTINAL: Denies abdominal pain, nausea, vomiting, diarrhea SKIN: Denies rash or itching. MUSCULOSKELETAL: Denies myalgia. NEUROLOGIC: Denies headache. All systems reviewed & are unremarkable except as noted in HPI and below PMFSH Comments At time of signature, agree with nursing past medical, surgical, social and family history. There is no relevant family history pertinent to the presenting complaint Exam Narrative: GENERAL: Well-appearing, well-nourished, and in no acute distress. HEAD: Normocephalic EYES: PERRLA, conjunctivae clear ENT: Nares clear, turbinates edematous, clear discharge. Mucous membranes moist. TM pearly warren with dull light reflex bilaterally; no tragal tenderness, EAC unremarkable. No post or pre-auricular erythema, induration, or warmth noted. Oropharynx not erythematous without lesions. Tonsils not enlarged and without exudate, no drooling, no hoarseness, no trismus, uvula midline. NECK: Supple. No lymphadenopathy CHEST: Clear to auscultation, breath sounds equal. No wheezing, rhonchi, rales, or stridor. No respiratory distress, speaks in full sentences. HEART: Regular rate and rhythm. No murmur heard. SKIN: Warm, dry, no rash. NEURO: Alert and oriented x3. PSYCH: Normal mood and affect Course Course Emergency Course: Patient is aware of diagnosis, understands and agrees to treatment plan. Anticipatory guidance given. Patient agrees to follow-up as directed and is aware of reasons to seek care at the emergency department. Portions of this record may have been created with voice recognition software Level of Care: [facility] Visit Vital Signs Vital signs: Vital Signs Temperature 98.5 F 02/06/25 14:24 Pulse Rate 88 02/06/25 14:24 Respiratory Rate 16 02/06/25 14:24 Blood Pressure 112/73 02/06/25 14:24 Pulse Oximetry 98 02/06/25 14:24 Oxygen Delivery Room Air 02/06/25 14:24 Temperature 98.5 F 02/06/25 14:24 Pulse Rate 88 02/06/25 14:24 Respiratory Rate 16 02/06/25 14:24 Blood Pressure 112/73 02/06/25 14:24 Pulse Oximetry 98 02/06/25 14:24 Oxygen Delivery Room Air 02/06/25 14:24 Reviewed. Medical Decision Making MDM Narrative Medical decision making narrative: I evaluated this in the [facility]. History is obtained from patient who is an independent historian and physical exam was performed.? Available medical records were reviewed. ? Exam findings and relevant testing show no acute concerns or changes; patient is non-toxic appearing and is in no distress. Differential diagnosis considered: Zimmerman virus, strep pharyngitis, allergic rhinitis, upper respiratory tract infection, sinusitis, rhinosinusitis, nasopharyngitis. viral pharyngitis, otitis media, otitis externa, otitis effusion, pre/post auricular cellulitis, mastoiditis, cerumen impaction, foreign body. Exam findings show no acute concerns or changes; patient is non-toxic appearing and is in no distress. Patient is appropriate for outpatient treatment and follow-up. ? Differential diagnosis and treatment plan were discussed with the patient. Patient agrees with discussion and after shared medical decision making agrees with plan of care. All questions were answered to the patient's satisfaction. Patient is appropriate for outpatient treatment and follow-up. Vital Signs Vital Signs: Vital Signs Temperature 98.5 F 02/06/25 14:24 Pulse Rate 88 02/06/25 14:24 Respiratory Rate 16 02/06/25 14:24 Blood Pressure 112/73 02/06/25 14:24 Pulse Oximetry 98 02/06/25 14:24 Oxygen Delivery Room Air 02/06/25 14:24 Temperature 98.5 F 02/06/25 14:24 Pulse Rate 88 02/06/25 14:24 Respiratory Rate 16 02/06/25 14:24 Blood Pressure 112/73 02/06/25 14:24 Pulse Oximetry 98 02/06/25 14:24 Oxygen Delivery Room Air 02/06/25 14:24 Critical Care Time Critical Care Time Critical Care Time: No Discharge Plan Discharge Clinical Impression: Upper respiratory infection Patient Disposition: Home Condition: Stable Instructions: Antibiotic Form Additional Instructions: Your rapid strep swab was negative today at [facility]. A throat culture will be sent to the laboratory for further testing. If the test is positive, you will receive a phone call within 48 hours and an appropriate antibiotic will be initiated at that time. Your symptoms are likely due to a viral illness, which is not treated with antibiotics. Viral symptoms can be present for up to a few weeks. -Alternate Tylenol and Motrin per package directions for fever or pain. -Antihistamine medication such as Benadryl at night and Zyrtec during the day can help improve symptoms. -Eat and drink things that are easy to swallow, like tea or soup, or popsicles to suck on. -Oral rinses such as: Salt water gargles and/or may use topical anesthetic (eg. Chloraseptic spray) or lozenges to relieve dryness or throat pain). -Frequent hand washing or hand cigar head puncher is one of the best ways to prevent spread of infection. -Follow up with primary care provider in 2-3 days if condition is not improving; or seek ER visit if you have trouble breathing, cannot drink enough fluids, have muffled voice, difficulty opening your mouth, or severe swelling. Patient Language: Bel[place]ian Prescriptions: New pseudoephedrine HCl [12 Hour Decongestant] 120 mg tablet extended release 120 mg PO Q12H PRN (Reason: nasal congestion) Qty: 12 0RF fluticasone propionate [Flonase Allergy Relief] 50 mcg/actuation spray,suspension 2 spray NASAL DAILY 14 Days Qty: 15.8 0RF Rx Instructions: administer into each nostril No Action bupropion HCl 300 mg tablet extended release 24 hr PO Follow-up/Referrals: Loc,MD Alfreda [Primary Care Provider, Unknown] Time of Disposition: 14:51
[2025-02-09 11:48] LABS: EDSTREPNEGPOS1 Negative (Negative)
== END 2025-02-06 14:57 | disposition home or self-care (01) ==
PROVIDERS: Emergency Provider Nurse Practitioner; PCP Family Medicine
DX: J06.9 Acute upper respiratory infection, unspecified (principal)
CPT/HCPCS: 87081; 87880; 99203; G0463